=== PATIENT | female | born 1960 | race Caucasian/White ===

== ENCOUNTER 2023-06-24 10:15 | Outpatient (OUT) | payer OTHER, SELFPAY ==
[2023-06-24 10:48] LABS: Basophils Absolute Auto 0.1 10^3/uL (0.0-0.1); Basophils Percent Auto 1.4 % (0.2-2.0); Eosinophils Absolute Auto 0.4 10^3/uL (0.0-0.7); Eosinophils Percent Auto 4.7 % (0.9-7.0); Immature Granulocytes Abs Auto 0.02 10^3/uL (0.00-0.03); Immature Granulocytes Pct Auto 0.2 % (0.0-0.5); Lymphocytes Absolute Auto 3.4 10^3/uL (1.2-3.8); Lymphocytes Percent Auto 36.5 % (20.5-60.0); Mean Corpuscular HGB Conc 31.7 g/dL (29.9-35.2); Mean Corpuscular Hemoglobin 30.6 pg (26.7-34.0); Mean Corpuscular Volume 96.5 fL (81.0-99.0); Monocytes Absolute Auto 0.8 10^3/uL (0.3-0.8); Monocytes Percent Auto 8.7 % (1.7-12.0); Neutrophils Absolute Auto 4.5 10^3/uL (1.4-6.5); Neutrophils Percent Auto 48.5 % (43.0-75.0); Platelet Count 333 10^3/uL (150-450); Red Blood Count 4.25 10^6/uL (4.20-5.40); Red Cell Distribution Width 13.5 % (11.0-15.0); White Blood Count 9.2 10^3/uL (4.0-11.0)
[2023-06-24 11:00] LABS: Alanine Aminotransferase 37 U/L (14-59); Albumin Globulin Ratio 0.8; Albumin Level 3.3 g/dL (3.4-5.0); Alkaline Phosphatase 98 U/L (46-116); Anion Gap 8.5; Aspartate Amino Transferase 15 U/L (15-37); BUN Creatinine Ratio 24.7; Bilirubin Total 0.3 mg/dL (0.2-1.0); Calcium 8.2 mg/dL (8.5-10.1); Carbon Dioxide 31.8 mmol/L (21.0-32.0); Chloride 102 mmol/L (98-107); Estimated GFR (African America >60 (>=60); Estimated GFR (Non-African Ame >60 (>=60); Globulin 3.9 g/dL; Glucose 128 mg/dL (74-106); Potassium 4.3 mmol/L (3.5-5.1); Sodium 138 mmol/L (136-145); Total Protein 7.2 g/dL (6.4-8.2)
== END 2023-06-24 10:16 | disposition home or self-care (01) ==
LOC: LAB 10:19
PROVIDERS: PCP Internal Medicine; Visit Provider Internal Medicine
DX: Z00.00 Encounter for general adult medical examination without abnormal findings (principal)
CPT/HCPCS: 36415; 80053; 80061; 82043; 83036; 84443; 85025

== ENCOUNTER 2025-07-23 12:09 | Outpatient (OUT) | payer OTHER, SELFPAY ==
--- OUTSIDE RECORDS SUMMARY | 2020-10-23 11:45 | XMS_ITS | Continuity of Care Document ---
Author Organization [facility] Address [address] [place] [address] Phone Care Team Providers Care Bakery Worker Name Role Phone Oleg Ybarra Unavailable Unavailable Procedures Procedure Date Pfizer COVID Vaccine Admin Dose 1 COVID-19 Pfizer FLU VAC NO PRSV 4 ILENE 3 YRS+ OFFICE/OUTPATIENT VISIT, EST IMMUNIZATION ADMIN FLU VAC NO PRSV 4 ILENE 3 YRS+ FLU VACCINE, 3 YRS & >, IM OFFICE/OUTPATIENT VISIT, EST FLU VACCINE, 3 YRS & >, IM Advance Directives Directive Yes / No Effective Date File Name No Information Encounters Encounter Description Practice Location Reason(s) For Visit Diagnoses Date Provider Providers Copied on Encounter [facility], [address], [place], [id number], tel:[phone] COVID ECHD No Information 1 Sarahy Rosas. [address], [place], [id number] , [place]. tel:[phone] OFFICE/OUTPAT IENT VISIT, [facility], [address] [place] [address], [id number], [place] tel:[phone] [facility] Lizmarysuad No Information - 4 Sarahy Rosas. [address], [place], [id number] , [place]. tel:[phone] OFFICE/OUTPAT IENT VISIT, EST [facility], [address], [place], [id number], [place] tel:[phone] [facility] [place] Influenza Vaccine 3 Visclni Rosas. [address], [place], [id number] , [place]. tel:[phone] [facility], [address], [place], [id number], [place] tel:[phone] [facility] No Information 1 Visci DO Dejesus. [address], [place], [id number] , [place]. tel:[phone] Family History Family Member Type Diagnosis Age At Onset No Information Immunizations Vaccine Date Status Comments Pfizer COVID administered Source: New Imm unization Record Flu (split) (3 yrs or older) administered Note: vis given ; Source: New Immunization Record Flu (split) (3 yrs or older) administered Note: vis given ; Source: New Immunization Record Flu (split) (3 yrs or older) administered Note: vis given ; Source: New Immunization Record Flu (split) (3 yrs or older) administered Note: vis given ; Source: New Immunization Record Flu (split) (3 yrs or older) administered Note: vis given ; Source: New Immunization Record Flu (split) (3 yrs or older) administered Note: vis given ; Source: New Immunization Record Flu (split) (3 yrs or older) administered Note: vis given ; Source: New Immunization Record Flu (split) (3 yrs or older) administered Note: vis given ; Source: New Immunization Record Flu (split) (3 yrs or older) administered Note: vis given ; Source: New Immunization Record Flu (split) (3 yrs or older) administered Note: vis given ; Source: New Immunization Record Flu (split) (3 yrs or older) administered Note: vis given ; Source: New Immunization Record Flu (split) (3 yrs or older) administered Note: vis given ; Source: New Immunization Record Flu (split) (3 yrs or older) administered Note: vis given ; Source: New Immunization Record Flu (split) (3 yrs or older) administered Note: VIS GIVEN. ; Source: New Immunization Record Payers Payer name Insurance type Covered alliance party ID Authoriza tion(s) [employer] [id number] [employer] [id number] Social History Type Description Quantity Date Captured Comments Alcohol Use Details Unknown Caffeine Use Details Unknown Tobacco Use Status No Information Smoking Status No Information Sex Female Sexual Orientation Straight or heterosexual Gender Identity Female Chief Complaint And Reason For Visit No Information Reason For Referral Reason For Referral No Information Plan Of Treatment Date Type Action Status Goal Influenza Vaccine. Due on due Goal Colonoscopy. Due on 021 due Goal FOBT. Due on due Goal Zoster vaccine (1st). Due on due Goal Mammogram. Due on due Goal Depression screening. Due on due Goal Tdap. Due on due Goal Influenza Vaccine. Due on due History Of Present Illness Encounter Date Complaint History Of Prese nt Illness No Information Functional Status Date Functional Assessmen t No Information Instructions Date Instruction Additional Infor mation No Information Assessments Type Assessment Date No Information Patient Care Teams Name Effective Dates (start - stop) Status Members No Information
--- OUTSIDE RECORDS SUMMARY | 2025-07-23 06:49 | XMS_ITS | Continuity of Care Document ---
Author Organization [facility] Address [address] [place] [address] Phone Care Team Providers Care Lathe Setup Operator Name Role Phone Evelio Dougherty DO Primary Care Provider Evelio Dougherty DO Attending Provider [phone] Care Teams Patient Care Team Team Status: Active Member Role/Relationship Status Dates Evelio Dougherty DO Primary Care Provider Active Patient Care Team Team Status: Inactive Member Role/Relationship Status Dates Evelio Dougherty DO Primary Care Provider Active Start: July 23, 2025 End: July 23enjaevan Dougherty DOAttending ProviderActiveStart: July 23, 2025 End: July 23, 2025 Chief Complaint and Reason for Visit Chief Complaint Admit Date possible broken ribs July 23, 2025 11:10am Reason for Visit Admit Date Chest pain July 23, 2025 11:10am Contusion, chest wall July 23 11:10am Hypothyroid July 23, 2025 11:10am Obesity July 23, 2025 11:10am Type 1 diabetes mellitus with hyperglyce rashel July 23, 2025 11:10am Wellness examination July 23, 2025 11:10am Allergies, Adverse Reactions, Alerts Allergen Type Severity Reaction Last Updated Verified Status latex Allergy Unknown Unknown Reaction July 23, 2025 11:19am Yes Active elastics Allergy Mild Unknown Reaction June 30, 2024 10: 36am No Active Social History Smoking Status Status Start Date End Date Date of Observa tion Never smoked tobacco (finding) May 06, 2017 12:27pm Observation Status Observation Response Date of Response Legal Sex [facility] (finding) [facility] 1960 Problems Active Problems Problem Diagnosis/Recorded Date Onset Date Stat us Screening for colon cancer June 28, 2024 8:16am U nknown Active Screening mammogram for breast cancer June 28 8:16am Unknown Active Type 1 diabetes mellitus wit h hyperglycemia June 28, 2024 8:15am Unknown Active Wellness examination June 28, 2024 8:09am Unknown Active Hypothyroid June 28, 2024 8:16am Unknown Ac tive Contusion, chest wall July 23, 2025 11:41am Unkn own Active Chest pain July 23, 2025 11:41am Unknown Active Obesity June 30, 2024 11:02am Unknown A ctive Medications Medication Status Dose Units Route Directions Qty Days Refills S tart Date Stop Date End Date Reason(s) Instructions Adherence Levothyroxine (Synthroid) 175 mcg tablet Discontinued 175 MCG PO Every morning 90 90 August 03, 2024 12:35pm July 23, 2025 6:52amMontelukast 10 mg ebjcuhFxqefolvilwf99JDCCBdzbg at xtgfotr43785Qfuyy 2024 11:00pmJuly 23, 2025 11:32amLevothyroxine (Synthroid) 175 mcg vchcbkOfdnmy439MCBBQWlthd kbmhzbh72444Gfokffgf2024 6:52amComplies with drug therapyAzithromycin 250 mg swjudvMmxkjbczjhys290AHPE .YUGRTAM225Yyjss 2024 11:00pmAutuba city regional health care corporationt 2024 11:27am2 tabs on first day followed by 1 tab on days 2-5Levothyroxine (Synthroid) 175 mcg tablet Ijnilbvsobxb6WFZAXKpjhn 2023 12:00amDece2023 12:36pmFreeTextSi tablet every morning on an empty stomach Orally Once a day; Note: Source Status: Refill; Refills: 3; Qty: 90 Tablet; Provider: Farhat Conroy Lispro (Humalog U-100 Insulin) 100 unit/mL solution Uhktlmeygxny84KPAVCVRRVGEDOAGehzicsz 5th, 2024 12:00amNove2024 11:24amFexofenadine 180 mg jtrfrpHtyhte386BDIWLczsrSjtfjdur 5th, 2024 12:00am Complies with drug therapyAspirin 81 mg tablet,delayed release (DR/EC)Obbnee96VD PODailyNovember 2023 12:00amComplies with drug therapyNirmatrelvir- Ritonavir (Paxlovid) 300 mg (150 mg x 2)-100 mg tablets,dose vtfgZlckuefeophi5YB .TMXRGQV548Nczqkx 2024 11:00pmNov2024 11:19amtake TWO 150 mg tablets of nirmatrelvir with ONE 100 mg tablet of ritonavir twice daily for 5 days POInsulin Aspart (B3) Pump Cart (Fiasp Pumpcart) 100 unit/mL (1.6 mL) sqyimqobeUpwfqe6qbvnamg scale doseSUBCUTUse as DirectedJuly 23, 2025 12:00amComplies with drug therapy Immunizations Immunization Event Date Not Given Reason Dose Number Human Resources Compliance Manager Lot Number Reason(s) Given Vaccine Information Statement (VIS) Detail Administration Location COVID-19 mRNA, Comirnaty ([employer] October 23, 2020 COVID-19 mRNA, Comirnaty ([employer]August 30OVID-19 mRNA, Comirnaty ([employer]April 05OVID- Comirnaty ([employer] Tri-Sucrose +April 05OVID-19 ([employer]) 12Y and olderOctober 2022Influenza, seasonal, injectable, [id number] [facility] Quadrivalent InfluenzaOctsaint [facility] 2022 Vital Signs Vital Reading Result Reference Range Collection Date/Time Height 63 [in_i] July 23, 2025 11:36ctHbhhkr37.98 kgJuly 23, 2025 11:23amHeart Rate80 /cve52-969LmriruvpJuly 23, 2025 11:23amRespiratory rate12 /cfq27-33IniulpnqJuly 23, 2025 11:23amBP Ntqcveaw611 mm[Hg]100-140July 23, 2025 11:23amBP Diastolic 80 mm[Hg]60-100July 23, 2025 11:23amBMI (Body Mass Index)35.1 kg/m2 July 23, 2025 11:23am Advance Directives Advance Directive Response Recorded Date/ Time Advance Directives No April 1:39pm Insurance Providers Guarantor Siobhan Kunz Address [address] [phone] Info.Home Phone: Payer Group Member ID Coverage Type Subscriber Relationship to Subscriber Effective Date Expiration Date MMO Id: [id number] B Adams Id: [id number] [address] [place] [phone] Home Phone: Email: [email or web address] [id number] B Adams Id: [id number] [address] [place] [phone] Home Phone: Email: [email or web address] Encounters Encounter Location(s) Arrival/Admit Date Discharge/Departure Date Discharge/Departure Disposition Provider(s) Departed Physician/ Provider [facility] July 23, 2025 11:10am July 23, 2025 11:48am Discharged to home care or self care (routine discharge) Evelio Dougherty , DO Recent Diagnosis Onset Date Admit Date Chest pain Unknown July 23 11:10am Contusion, chest wall Unknown June 272024 11:10am Hypothyroid Unknown July 23 11:10am Obesity Unknown July 23 11:10am Type 1 diabetes mellitus with hyperglycemia Unkn own July 23, 2025 11:10am Wellness examination Unknown July 232024 11:10am Assessments Diagnosis Onset Date Resolution Status Admit Date Chest pain acuteNovember 2024 11:10amContusion, chest wallacuteNovember 2024 11:10amHypothyroidacuteNovember 2024 11:10amObesityacuteNovember 2024 11:10amType 1 diabetes mellitus with hyperglycemiaacuteNov2024 11:10amWellness examinationacuteNov2024 11:10am Plan of Treatment Author [facility] HospitalAuthoredNovember 2024 11:47amI have instructed this patient on the recommended lifestyle changes, which includes a low fat, high fiber diet along with a regular exercise routine. I have also reviewed the recommended age-appropriate preventive testing for this patient. I have also reviewed the recommended vaccines for their age and risk factors. I have instructed this patient to follow a comprehensive diabetic treatment plan. I have also instructed them to check their feet daily for calluses and nonhealing ulcers. I have instructed them to have a yearly dilated eye examination. I have reviewed their treatment goals: SBP less than 130, LDL less than 100, FBS less than 140, A1C less than 7%. I have instructed them to maintain a home BS log and bring the results to each of their office visits for review. I have explained the importance of routine monitoring of their A1C, Microalbumin and Lipids. I have explained the benefits of well controlled diabetes in preventing micro and macrovascular complications. Clinically euthyroid, monitor TSH yearly I have instructed this patient on a low-fat, high-fiber diet.?? I have also instructed them to reduce calories, portions sizes, sweet drinks and snacks.?? I have also recommended they exercise for 30 minutes, 3-5 times weekly. They are aware of the comorbid conditions associated with excessive weight: Diabetes, HTN, Hyperlipidemia, CAD and arthritis. Side stepped a cat and fell, striking left chest wall against a porch table. She has pain w/ deep inspiration and feels pressure throughout her chest wall. Instructed to splint the left chest wall w/ cough or sneezing. Tylenol for pain XR to r/o fx, pneumothorax and hemothorax Future Tests Future scheduled test information is unavailable Pending Tests Test Name Ordered Date Scheduled Date Comprehensive Metabolic Panel July 23 11:39am XR ribs LT min 3V w CXR1V*July 23, 2025 11:39am Future Visits Future appointment information is unavailable Future Procedures Procedure Name Ordered Date Scheduled Date Complete Blood Count Auto Diff July 23 11:39am Lipid PanelNov2024 11:39amMicroAlb Creat Ratio,UNovember 2024 11:39amThyroid Stimulating HormoneNov2024 11:39am Future Medications Future medication information is unavailable Patient Instructions Patient instructions are unavailable
--- OUTSIDE RECORDS SUMMARY | 2025-07-23 12:13 | XMS_ITS | Clinical Summary ---
Author Organization [facility] Address [address] [place] [address] Care Team Providers Care Pharmacy Service Associate Name Role Phone Unavailable Primary Care Provider Unavailabl e Allergies Active AllergyReactionsCriticalityNoted DateCommentsSeasonal Allergies Tzwttdmnqvs27/05/2009 Medications MedicationSigDispense QuantityRefillsLast FilledStart DateEnd DateStatus aspirin(ECOTRIN LOW STRENGTH 81 MG TAB) Take one (1) tablet daily. 0 ctive MULTIVITAMIN TAB Take one(1) tablet daily.ctive CETIRIZINE 10 MG TAB Take one(1) tablet daily.ctive SYNTHROID 137 mcg ORAL tablet Take 1 tablet by mouth once daily. 90 tablet ctive glucagon, human recombinant, (GLUCAGON EMERGENCY) 1 mg INJECTION injection Inject 1 mg intramuscularly as needed. for insulin shock. 2 Each ctive insulin aspart (NOVOLOG) 100 unit/mL Soln as directed for pump, total up to 65 daily 5 Vial ctive Immunizations ImmunizationAdministration DatesNext Dueinfluenza vaccine, unspecified dmlxmkvmsaf32/05/2009 Social History Tobacco UseTypesPacks/DayYears UsedDateSmoking Tobacco: NeverAlcohol UseStandard Drinks/WeekCommentsNot Asked0 (1 standard drink = 0.6 oz pure alcohol) CommentsNoSex and Gender InformationValueDate RecordedSex Assigned at BirthNot on fileLegal MztGtrncy52/02/2012 9:48 AM ESTGender IdentityNot on fileSexual OrientationNot on file Last Filed Vital Signs Vital SignReadingTime TakenCommentsBlood Qydtamzi226/70009/25/2010 3:59 PM EST Wglke5590/31/2011 3:59 PM ESTTemperature--Respiratory Wfjf667809/25/2010 3:59 PM ESTOxygen Saturation--Inhaled Oxygen Concentration--Ulavag78.3 kg (177 lb) 09/25/2010 3:59 PM BLXJzpaza463.4 cm (5' 2.75 )08/13/2008 10:10 AM ESTBody Mass Index31.6110/14/2007 10:10 AM EST Plan of Treatment Health MaintenanceDue DateLast DoneCommentsAnxiety Eontyzgat00/22/1981Depression Nucdkmxga17/22/1981HIV Rseebajpu90/22/1981Hepatitis C Hieuzabvz39/22/1981 DTaP,Tdap,Td Vaccine (1 - Tdap)1981Cervical Cancer Bcgvgxdwg27/22/1984 Mammogram Bpnsqqjwn57/22/2003CT Qjlfgifmvkqd81/22/2008Cologuard (FIT-DNA) 09/16/20077737Hgapxudnwss94/22/2008Colorectal Cancer Jwcqjemvr86/22/2008Fecal Occult Blood2007Lipid Ervfavuni24/22/5990Gefjpqwwyooly59/22/2008Pneumococcal Vaccine: 50+ (1 of 1 - PCV)2012Shingrix Vaccine (1 of 2)2012Diabetes Oytjqftjd76, 08/13/2008Covid-19 Vaccine (1 - 2024- season) 2025Influenza Vaccine (#1)/12/2008RSV Vaccine (1 - 1-dose 75+ series)2037 Procedures Procedure NamePriorityDate/TimeAssociated DiagnosisCommentsHEMOGLOBIN R8JNxsbxci 09/13/2010 1:37 PM EST DM w/o complication type I DM w/o complication type II, uncontrolled from Last 3 Months or Most Recently Relevant to Health Maintenance Results * (ABNORMAL) HGB A1C (09/13/2010 1:37 PM EST)ComponentValueRef RangeTest Method Analysis TimePerformed AtPathologist SignatureHemoglobin A1C8.4(H)4.0 - 6.0 % [facility] MAIN LABORATORYComment: [place] [employer] guidelines indicate that patients with HgbA1c in the range 5.7-6.4% are at increased risk for development of diabetes, and intervention by lifestyle modification may be beneficial. HgbA1c greater or equal to 6.5% is considered diagnostic of diabetes. Estimated Average Fowuwgg041wc/dLMERCY [facility]ALTH ST. [facility] MAIN LABORATORYComment: eAG: (Estimated average glucose) is a calculated value from HgbA1c and is sales promotion representative of the average blood glucose level in the last 2-3 month period. Specimen (Source)Anatomical Location / LateralityCollection Method / Volume Collection TimeReceived TimeBlood specimen (specimen)BLOOD SPECIMEN / Unknown 09/13/2010 1:37 PM EST09/13/2010 1:45 PM EST Narrative Authorizing ProviderResult TypeResult StatusDinsuad Holt MDLABORATORYFinal Result Performing OrganizationAddressCity/State/ZIP CodePhone Number [facility] [address] [place] [address] from Last 3 Months or Most Recently Relevant to Health Maintenance Insurance
--- OUTSIDE RECORDS SUMMARY | 2025-07-23 12:13 | XMS_ITS | CCD ---
Author Organization [facility] Care Team Providers Care Cook Apprentice Pastry Name Role Phone Evelio Dougherty Primary Care Unavailable Barby Vasquez Attending Unavailable FARHAT, DR HOSKINS Attending Unavailable FARHAT, DR HOSKINS Consulting Unavailable FARHAT, DR HOSKINS Primary Care Unavailable FARHAT, DR HOSKINS Admitting Unavailable BRANDON, DR СЕРГЕЙ Connell Consulting Evelio Jara Unavailable EVELIO DOUGHERTY Primary Care Physician Sandra MENG Admitting Unavailable Sandra MENG Attending Unavailable Sandra MENG Admitting Unavailable Sandra MENG Consulting Unavailable Sandra MENG Attending Unavailable Sandra MENG Referring Unavailable Sandra MENG Consulting Unavailable Sandra MENG Consulting Unavailable Sandra MENG Consulting Unavailable Sandra MENG Admitting Unavailable Sandra MENG Attending Unavailable Evelio Dougherty MD Primary Care Provider Evelio Dougherty DO Primary Care Provider Evelio Dougherty DO Primary Care Provider Evelio Dougherty DO Attending Provider [phone] MIRTHA CERVANTES Attending Unavailable MIRTHA CERVANTES Attending Unavailable IFRAH RODRIGUEZ Attending Unavailable MIRTHA CERVANTES Attending Unavailable Evelio Dougherty DO Primary Care Provider Allergies Allergy ClassificationReported Allergen(s)Allergy TypeDate of OnsetReaction(s) Facility (3 sources)elastic, latexPropensity to adverse reactionssensitivityNorth [place] Other (4 sources)Dust; Translations: [Dust]Drug allergyUnknown (qualifier value) [facility] (4 sources)Mold Extract; Translations: [Mold]Drug AllergyUnknown (qualifier value)[facility] (4 sources)Pollen; Translations: [Pollen]Drug allergyUnknown (qualifier value) [facility] (16 sources)LatexAllergy to -67-9788Kgogmfb ReactionOhiohealth (3 sources)elasticsAllergy to yhxubkgsq02-65-0972Takwpdk ReactionOhiohealth (13 sources)House dust miteAllergy to wiftjaydq73-68-5352UQKZ Healthcare (13 sources)Mold ExtractDrug Vdulqrp22-70-5668YWWU Healthcare (13 sources)PollenAllergy to ryrlmkgil27-60-9314YPRT Healthcare Medications Current Medications MedicationDrug Class(es)DatesSig (Normalized)Sig (Original)Patsy Allergy (2 sources)Start: 23-26-8219Inpxvme Allergy 180 mg, Oral, Refills(s) 0 Start Date: 01/22/19 Status: Orderedaspirin 81 mg delayed release oral tablet (20 sources)Platelet Aggregation Inhibitor, Nonsteroidal Anti-inflammatory Drug Start: 04-18-5723xaif 1 tablet by mouth once dailyStart: 65-35-5242Knfldwl Adult Low Dose 81 MG Aspirin( 81MG Oral 1 daily ) Active -Hx Entry Oral daily for 0 ActiveStart: 45-22-4010lrob 1 mg by mouth once dailyAdult Aspirin 81 mg oral tablet, chewable mg tab(s), Chewed, Daily, Refills(s) 0 Start Date: 01/22/19 Status: OrderedASPIRIN 81 MG chewable tablet 1 (one) time each day at the same time. ActiveContinuous Blood Gluc Sensor (Dexcom G6 Sensor) misc (2 sources)Start: 62-69-8247Kmedecwyij Blood Gluc Sensor (Dexcom G6 Sensor) misc Indications: Type 1 diabetes mellitus without complication (CMS/HCC) 1 each See administration instructions 9 each 1 12/09/2023 ActiveContinuous Blood Gluc Transmit (Dexcom G6 transmitter) misc (4 sources)Start: 33-39-9112Vzyozpgjeg Blood Gluc Transmit (Dexcom G6 transmitter) misc Indications: Type 1 diabetes mellitus without complication (CMS/HCC) Use as instructed every 90 days 1 each 3 12/09/2023 ActiveContinuous Glucose Sensor (Dexcom G6 Sensor) misc (10 sources)Start: 93-76-8540Eizxmkbyok Glucose Sensor (Dexcom G6 Sensor) misc Indications: Type 1 diabetes mellitus without complication (HCC) USE 1 SENSOR (SEE ADMINISTRATION INSTRUCTIONS) 9 each 1 05/03/2025 ActiveStart: 05-18-2024 Continuous Glucose Sensor (Dexcom G6 Sensor) misc Indications: Type 1 diabetes mellitus without complication (HCC) USE 1 SENSOR (SEE ADMINISTRATION INSTRUCTIONS) 9 each 05/18/2024 ActiveStart: 39-46-4714Ansaxyleuz Glucose Sensor (Dexcom G6 Sensor) misc Indications: Type 1 diabetes mellitus without complication USE 1 SENSOR (SEE ADMINISTRATION INSTRUCTIONS) 9 each 05/18/2024 ActiveStart: 99-82-5522Yuxydegttq Glucose Sensor (Dexcom G6 Sensor) misc Indications: Type 1 diabetes mellitus without complication (CMS/HCC) USE 1 SENSOR (SEE ADMINISTRATION INSTRUCTIONS) 9 each 3 05/18/2024 ActiveContinuous Glucose Transmitter (Dexcom G6 transmitter) misc (8 sources)Start: 18-62-5971Lbhmnyvaqm Glucose Transmitter (Dexcom G6 transmitter) misc Indications: Type 1 diabetes mellitus without complication (HCC) USE INSTRUCTED EVERY 90 DAYS 1 each 3 11/12/2024 ActiveStart: 25-67-3270Whkbaiyeyt Glucose Transmitter (Dexcom G6 transmitter) misc Indications: Type 1 diabetes mellitus without complication USE INSTRUCTED EVERY 90 DAYS 1 each 3 11/12/2024 Activefexofenadine hydrochloride 180 mg oral tablet (8 sources)Histamine-1 Receptor AntagonistStart: 09-93-2239aqoc 1 tablet by mouth once daily End: 12-24-7685fctj 1 tablet by mouth once dailyfexofenadine (Patsy) 180 MG tablet 1 (one) time each day at the same time. 1 tablet Swallow wholewith water; do not take with fruit juices. Orally Once a day 05/08/2024 Discontinued (Therapy completed)glucagon 3 mg nasal powder (13 sources)Antihypoglycemic AgentStart: 05-86-0750anxh 3 mg nasal route once glucagon (Baqsimi One Pack) 3 MG/DOSE nasal powder Administer 3 mg into affected nostril(s) 1 (one)time if needed for low blood sugar 09/22/2021 ActiveStart: 06-20-9958ladjxctp (Baqsimi One Pack) 3 MG/DOSE nasal powder as directed for hypoglycemia Nasally for 30 days09/22/2021 Activeinsulin aspart, human 100 unt/ml injectable solution (14 sources)Insulin AnalogStart: 11-11-7089Dieqy 100 UNIT/ML solution Indications: Type 1 diabetes mellitus without complication (HCC) INJECT ONE DOSE DIRECTED SEE ADMINISTRATIONINSTRUCTIONS PER PUMP MAXIMUM DAILY 150UNITS 140 mL 1 05/03/2025 ActiveStart: 93-73-2001Ywkytwq Aspart, w/Niacinamide, (Fiasp) 100 UNIT/ML solution Indications: Type 1 diabetes mellitus without complication (HCC) INJECT ONE DOSE DIRECTEDSEE ADMINISTRATION INSTURCTIONS PER PUMP MAXIMUM DAILY 150 UNITS 150 mL 1 11/12/2024 ActiveStart: 08-24-2024 End: 06-34-9645rxopoqf aspart (NovoLOG) 100 UNIT/ML injection Indications: Type 1 diabetes mellitus without complication (CMS/HCC) Per pump (max daily 150 units) 140 mL 3 08/24/2024 10/01/2024 Discontinued (Therapycompleted)Start: 79-89-4417Jqhdoih Aspart, w/Niacinamide, (Fiasp) 100 UNIT/ML solution Indications: Type 1 diabetes mellitus without complication (CMS/HCC) Inject 1 Dose as directed See administration instructions Per pump (max daily 150 units) 150 mL 3 12/05/2023 ActiveInsulin Disposable Pump (Omnipod 5 OnmQ2X6 Pods Gen 5) misc (8 sources)Start: 11-27-2024 End: 48-86-9000Mjecoms Disposable Pump (Omnipod 5 CazD8V1 Pods Gen 5) misc Indications: Type 1 diabetes mellitus without complication (HCC) Inject 1 Device under the skin every other day Pump settings- Basal: 12A 2.0, 10A 1.6, 5P 2.6, ICR: 12A 4, ISF: 35 45 each 3 11/27/2024 11/27/2025 ActiveStart: 11-27-2024 End: 94-86-8681Rhjnaux Disposable Pump (Omnipod 5 MsgC2W6 Pods Gen 5) misc Indications: Type 1 diabetes mellitus without complication Inject 1 Device under the skin every other day Pump settings- Basal: 12A 2.0, 10A 1.6, 5P 2.6, ICR: 12A 4, ISF: 35 45 each 3 11/27/2024 11/27/2025 ActiveInsulin Disposable Pump (Omnipod 5 G6 Pods, Gen 5,) misc (6 sources)Start: 16-43-2878Whgjjlf Disposable Pump (Omnipod 5 G6 Pods, Gen 5,) [facility] Indications: Type 1 diabetes mellitus without complication (CMS/HCC) Inject 1 each under the skin every other day Inject 1 each under the skinevery other day. Pump settings- Basal: 12A 2.0, 10A 1.6, 5P 2.6, ICR: 12A 4, ISF: 35 45 each 3 05/10/2024 ActiveStart: 10-10-2023 End: 89-70-9876Iumbtae Disposable Pump (Omnipod 5 G6 Pods, Gen 5,) [facility] [place] Indications: Type 1 diabetes mellitus without complication (CMS/HCC) Inject 1 each under the skin every other day Inject 1 each under the skinevery other day. Pump settings- Basal: 12A 1.8, 10A 1.6, 5P 2.2, ICR: 12A 4, ISF: 35 45 each 3 10/10/2023 05/10/2024 Discontinued (Dose adjustment)3 ml insulin glargine 100 unt/ml pen injector (13 sources)Insulin AnalogStart: 75-70-5041ucgkerz glargine (Lantus SoloStar) 100 UNIT/ML pen Indications: Type 1 diabetes mellitus without complication (HCC) Inject 50 Units under the skin in the morning. 15 mL 3 06/11/2023 Activeinsulin lispro 100 unt/ml injectable solution (6 sources)Insulin AnalogStart: 60-03-9249Mpllh: 95-79-9607Owdlfgv SubCutaneous, Refills(s) 0 Start Date: 01/22/19 Status: OrderedHumaLOG 100 UNIT/ML INJECT 90 UNITS DAILY VIA INSULIN PUMP ActiveHumaLOG 100 UNIT/ML INJECT 90 UNITS DAILY VIA INSULIN PUMP ActiveInsulin Lispro (Humalog U-100 Insulin) 100 unit/mL solution (2 sources)Start: 81-21-2961Yetblcw Lispro (Humalog U-100 Insulin) 100 unit/mL solution Active 90 UNIT CNTSUBQINF June 1:00amStart: 06-30-2024 Insulin Lispro (Humalog U-100 Insulin) 100 unit/mL solution Active 90 UNIT CNTSUBQINF June 12:00amlevocetirizine dihydrochloride 5 mg oral tablet (13 sources)Histamine-1 Receptor Antagonisttake 1 tablet by mouth in the evening levocetirizine (Xyzal) 5 MG tablet Take 5 mg by mouth in the evening Active levothyroxine sodium 0.175 mg oral tablet (20 sources)l-ThyroxineStart: 06-30-2024 End: 60-56-0917crgc 1 tablet by mouth once daily in the morningStart: 01-22-2019 take 1 tablet by mouth once dailylevothyroxine 150 mcg (0.15 mg) Tab microgram tab(s), Oral, Daily, Refills(s) 0 Start Date: 01/22/19Status: OrderedMagnesium (6 sources) End: 01-82-6395UMHCTRUWC PO 12/29/2024 DiscontinuedMAGNESIUM PO Active montelukast 10 mg oral tablet (14 sources)Leukotriene Receptor AntagonistStart: 30-42-3599xhne 1 tablet by mouth once daily at bedtimeMultiple Vitamin (Multi Vitamin Daily) tablet (13 sources)Multiple Vitamin (Multi Vitamin Daily) tablet 1 (one) time each day at the same time. ActiveMultiple Vitamins-Minerals (Airborne) chewable tablet (13 sources)Multiple Vitamins-Minerals (Airborne) chewable tablet as directed Orally ActiveNirmatrelvir-Ritonavir (1 source)Start: 00-08-3239Cblxcsujinjm-Ritonavir (Paxlovid) 300 mg (150 mg x 2)-100 mg tablets,dose pack Active 0 PO .QCVENRK50 March 29, 2025 12:00am take TWO 150 mg tablets of nirmatrelvir with ONE 100 mg tablet of ritonavir twice daily for 5 days PO Complies with drug therapyterbinafine 250 mg oral tablet (3 sources)Allylamine AntifungalStart: 05-17-2025 End: 19-51-1646iqma 1 tablet by mouth once dailyterbinafine (LamISIL) 250 MG tablet Indications: Onychomycosis Take 1 tablet (250 mg) by mouth Daily 90 tablet 05/17/2025 08/15/2025 Active Completed/Discontinued Medications MedicationDrug Class(es)DatesSig (Normalized)Sig (Original)azithromycin 250 mg oral tablet (5 sources)Macrolide AntimicrobialStart: 11-02-2024 End: 10-83-4754Mxnjccoeshgw 250 mg tablet Discontinued 250 MG PO .COMPLEX 6 5 November 02, 2024 12:00am March 12:27pm 2 tabs on first day followed by 1 tab on days 2-5Start: 70-11-0628ypoo 1 tablet by mouth once dailyAzithromycin 250 MG azithromycin 250mg, 2 (two) tablet today followed by 1 daily # 6, 06/22/2022, No Refill. Active Oral today followed by 1 daily for 5 May, Not-Taking/PRNFezolinetant (Veozah) 45 MG tablet (2 sources)Start: 03-26-2024 End: 30-84-6589dsfj 1 tablet by mouth once dailyFezolinetant (Veozah) 45 MG tablet Indications: Vasomotor symptoms due to menopause Take 1 tablet by mouth Daily 30 tablet 11 03/26/2024 05/08/2024 Discontinued (Cost of medication) Insulin Disposable Pump (Omnipod 5 G6 Pod, Gen 5,) misc (2 sources)Start: 09-05-2023 End: 57-83-7298Nckuvzo Disposable Pump (Omnipod 5 G6 Pod, Gen 5,) misc Indications: Type 1 diabetes mellitus without complication ([facility]) 1 Device every other day 45 each 3 09/05/2023 05/08/2024 Discontinued Problems Active Problems Problem ClassificationProblemDateDocumented DateEpisodic/ChronicAbdominal pain (3 sources)Epigastric pain; Translations: [Epigastric pain]EpisodicComplications of surgical procedures or medical care (5 sources)Postoperative hypothyroidism; Translations: [Postprocedural hypothyroidism]ChronicDiabetes mellitus without complication (20 sources)Type 1 diabetes mellitus without complication; Translations: [Type 1 diabetes mellitus without complications]Onset: hronic Disorders of lipid metabolism (3 sources)Pure hypercholesterolemia; Translations: [Familial hypercholesterolemia]ChronicEsophageal disorders (3 sources)Gastroesophageal reflux disease; Translations: [Gastro-esophageal reflux disease without esophagitis]ChronicImmunizations and screening for infectious disease (2 sources)Patient encounter status; Translations: [Encounter for screening for human papillomavirus (HPV)]07-54-4082FgcrqgokYpnbsppzlz disorders (17 sources)Menopausal symptom; Translations: [Menopausal and female climacteric states]Onset: 762915-80-2369HnpyferFkpuaxi (4 sources)Onychomycosis; Translations: [Tinea unguium]74-94-9086WgqjmnupYjyrm diseases of bladder and urethra (2 sources)Male cystocele; Translations: [Other specified disorders of bladder] 65-15-7247KrrjhbaBcsxx inflammatory condition of skin (3 sources)Lichen planus; Translations: [Lichen planus, unspecified]Episodic Other lower respiratory disease (3 sources)Cough; Translations: [Cough]EpisodicOther nutritional; endocrine; and metabolic disorders (16 sources)Severe obesity; Translations: [Morbid (severe) obesity due to excess calories]Onset: 410269-80-0893JztjgxoUnztt nutritional; endocrine; and metabolic disorders (3 sources)Body mass index 30+ - obesity; Translations: [Body mass index (BMI) 35.0-35.9, adult]ChronicOther nutritional; endocrine; and metabolic disorders (1 source)Morbid (severe) obesity due to excess caloriesChronicOther nutritional; endocrine; and metabolic disorders (1 source)Body mass index (BMI) 35.0-35.9, adultChronicOther nutritional; endocrine; and metabolic disorders (3 sources)Obesity; Translations: [Obesity, unspecified]03-59-9779JeyczsgLonsb nutritional; endocrine; and metabolic disorders (1 source)Obesity, unspecified; Translations: [Obesity, unspecified]06-30-2024 ChronicOther nutritional; endocrine; and metabolic disorders (3 sources)History of Graves' disease; Translations: [Personal history of other endocrine, nutritional and metabolic disease]EpisodicOther screening for suspected conditions (not mental disorders or infectious disease) (14 sources)Encounter for screening for malignant neoplasm of colon; Translations: [Encounter for screening mammogram for malignant neoplasm of breast]EpisodicOther upper respiratory disease (3 sources)Vasomotor rhinitis; Translations: [Vasomotor rhinitis]ChronicOther upper respiratory disease (1 source)Vasomotor rhinitisChronicThyroid disorders (4 sources)Hypothyroidism; Translations: [Hypothyroidism, unspecified]06-28-2024 ChronicUnclassified (1 source)R07.81 - Pleurodynia; Translations: [R07.81 - Pleurodynia]Onset: 74-08-3736Ycrtwmkbhvdr (2 sources)Screening xqmnco05-78-2176Gmkrz infection (1 source)Disease caused by 2019-nCoV; Translations: [COVID-19]03-29-2025 EpisodicViral infection (4 sources)COVID-19; Translations: [COVID-19]Onset: 10-31-2021 Past or Other Problems Problem ClassificationProblemDateDocumented DateEpisodic/ChronicDiabetes mellitus with complications (20 sources)Hyperglycemia due to type 1 diabetes mellitus; Translations: [Type 1 diabetes mellitus with hyperglycemia]Onset: 05-10-2024 Resolved: 02-23-2460NcwrfweIekvg gastrointestinal disorders (13 sources)Abdominal bloating; Translations: [Abdominal distension (gaseous)] Onset: 363910-65-2476FxfusoyvBpuutjbbency (1 source)Acute right-sided low back pain without sciatica M54.50 Results Test NameValueInterpretationReference RangeFacilityCOMPREHENSIVE METABOLIC PANEL on 02-37-1621Wwfunqa [Mass/Vol]4.0 g/dLNormal3.6-5.1Quest DiagnosticsComment on above:Performed By: #### [id number] #### [facility] [place] [address] Data Reviewer: Isac Mead MDAlbumin/Globulin [Mass ratio]1.5 {ratio}Normal 1.0-2.5Quest DiagnosticsComment on above:Performed By: #### [id number] #### [facility] [place] [address] Data Reviewer: Isac Mead MDALP [Catalytic activity/Vol]98 U/NNzoxuj22-151 Quest DiagnosticsComment on above:Performed By: #### [id number] #### [facility] [place] [address] Data Reviewer: Isac Mead MDALT [Catalytic activity/Vol]23 U/LNormal6-29 Quest DiagnosticsComment on above:Performed By: #### [id number] #### [facility] of [place] [address] Data Reviewer: Isac Mead MDAST [Catalytic activity/Vol]18 U/LAxkkkk05-30 Quest DiagnosticsComment on above:Performed By: #### [id number] #### [facility] of [address], [address] [place] [address] Data Reviewer: Isac Mead MDBilirubin [Mass/Vol]0.3 mg/dLNormal0.2-1.2 Quest DiagnosticsComment on above:Performed By: #### 75046 #### [facility] of [place] [address] Data Reviewer: Isac Mead MDBUN/CREATININE RATIOSEE NOTE:Normal6-22Quest DiagnosticsComment on above:Result Comment: Not Reported: BUN and Creatinine are within reference range.Performed By: #### [id number] #### [facility] of [address], [address] [place] [address] Data Reviewer: Isac Mead MDCalcium [Mass/Vol]8.7 mg/dLNormal8.6-10.4Quest DiagnosticsComment on above:Performed By: #### [id number] #### [facility] of [address], [address] [place] [address] Data Reviewer: Isac Mead MDChloride [Moles/Vol]102 mmol/MKmvhwk74-616 Quest DiagnosticsComment on above:Performed By: #### [id number] #### [facility] of [place] [address] Data Reviewer: sIac Mead MDCO2 [Moles/Vol]28 mmol/ANjvfdd87-80Mzflw DiagnosticsComment on above:Performed By: #### [id number] #### [facility] [place] [address] Data Reviewer: Isac Mead MDCreatinine [Mass/Vol]0.66 mg/dLNormal0.50-1.05 Quest DiagnosticsComment on above:Performed By: #### [id number] #### [facility] [place] [address] Data Reviewer: Isac Mead MDGFR/1.73 sq M.predicted among non-blacks MDRD (S/P/Bld) [Vol rate/Area]99 mL/min/{1.73_m2}Normal> OR = 60[facility] Comment on above:Performed By: #### [id number] #### [facility] [place] [address] Data Reviewer: Isac Mead MDGlobulin (S) [Mass/Vol]2.6 g/dLNormal1.9-3.7 Quest DiagnosticsComment on above:Performed By: #### 10107 #### [facility] [place] [address] Data Reviewer: Isac Mead MDGlucose [Mass/Vol]165 mg/sAVacx79-11Suxpw DiagnosticsComment on above:Result Comment: Fasting reference interval For someone without known diabetes, a glucose value >125 mg/dL indicates that they may have diabetes and this should be confirmed with a follow-up test.Performed By: #### [id number] #### [facility] [place] [address] Data Reviewer: Isac Mead MDPotassium [Moles/Vol]4.2 mmol/LNormal3.5-5.3 Quest DiagnosticsComment on above:Performed By: #### [id number] #### [facility] [place] [address] Data Reviewer: Isac Mead MDProtein [Mass/Vol]6.6 g/dLNormal6.1-8.1Quest DiagnosticsComment on above:Performed By: #### [id number] #### [facility] [address] [place] [address] [address], [address] [place] [address] Data Reviewer: Isac Mead MDSodium [Moles/Vol]139 mmol/KThoglf425-033Zndmb DiagnosticsComment on above:Performed By: #### [id number] #### [facility] [address] [place] [address] Rd, [address] [place] [id number] Data Reviewer: Isac Mead MDUrea nitrogen [Mass/Vol]20 mg/dLNormal7-25 Quest DiagnosticsComment on above:Performed By: #### [id number] #### [facility] [address], [address] Data Reviewer: Isac Mead MDHbA1c (Bld) [Mass fraction]on 05-17-2025 Interpretation and review of laboratory resultsNoAscension Saint Clare's HospitalLaboratory - Hematology and Cell countson 89-99-1706GwQ5t (Bld) [Mass fraction]7.5 %[facility] HospitalHbA1c (Bld) [Mass fraction]on 12-29-2024 Interpretation and review of laboratory resultsNormSSM Health St. [facility] JanesvilleLaboratory - Hematology and Cell countson 13-75-3618LhY2b (Bld) [Mass fraction]7.7 %[facility] HospitalNo Panel InformationOrdered By: Evelio Dougherty on 99-91-1287DBB (POC)[facility]healthHbA1c (Bld) [Mass fraction] on 23-10-9700Svpfpdhruslkfh and review of laboratory resultsAbnoAscension Saint Clare's HospitalLaboratory - Hematology and Cell countson 10-01-2024 HbA1c (Bld) [Mass fraction]8.2 %[facility] MAMM SCREEN W/CAD IF PERF AND 3D BILon 06-13-2024 Exam Date/Time: 06/10/2024 11:41 EDT Reason for Exam: Z12.31 Report IMPRESSION: BIRADS 2 BENIGN FINDINGS, NORMAL INTERVAL FOLLOW-UP Follow-up: 12 MONTH RECALL Density: Category C - Heterogeneously dense. Vascular calcifications: Absent. EXAM: [place] Mamm Screen w/CAD if perf and 3D Dann DATE: 06/10/2024 11:25 AM CLINICAL HISTORY: Z12.31. COMPARISONS: 04/13/2020 and 02/10/2018. TECHNIQUE: Routine full-field digital mammograms and 3D breast tomosynthesis were obtained of both breasts. FINDINGS: There are no developing densities, suspicious microcalcifications, or areas of architectural distortion identified on the current study. No significant changes are identified from the prior studies, given differences in technique and positioning. Stable asymmetric densities and a few scattered microcalcifications. Dense Breast: Yes. CAD analysis was performed and used in the interpretation. Board Certified Radiologists. Accredited by the ACR and FDA. MAMMOGRAPHY IS VERY IMPORTANT TO YOUR HEALTH. THE CURRENT [place] [employer] GUIDELINES RECOMMENDS ANNUAL MAMMOGRAPHY BEGINNING AT AGE 40. THIS FACILITY UTILIZES A REMINDER SYSTEM TO ENSURE ALL PATIENTS RECEIVE REMINDER NOTIFICATIONS AT THE APPROPRIATE TIME BASED ON THE RECOMMENDATIONS OF THIS EXAM. Report Ordering Provider: , FINAL REPORT Dictated: 06/13/2024 8:21 am Abel Valadez MD Signed (Electronic Signature): 06/13/2024 8:21 am Signed by: Abel Valadez MD Transcribed by: VIKASH Technologist: AP Assessment: BI-RADS Category 2-Benign finding Recommendation: Normal interval follow-upMEMORIAL H[facility] COUNTY – GUYMONRadiology, Radiologist, - 06/13/2024 Exam Date/Time: 06/10/2024 11:41 EDT Reason for Exam: Z12.31 Report IMPRESSION: BIRADS 2 BENIGN FINDINGS, NORMAL INTERVAL FOLLOW-UP Follow-up: 12 MONTH RECALL Density: Category C - Heterogeneously dense. Vascular calcifications: Absent. EXAM: [place] Mamm Screen w/CAD if perf and 3D Dann DATE: 06/10/2024 11:25 AM CLINICAL HISTORY: Z12.31. COMPARISONS: 04/13/2020 and 02/10/2018. TECHNIQUE: Routine full-field digital mammograms and 3D breast tomosynthesis were obtained of both breasts. FINDINGS: There are no developing densities, suspicious microcalcifications, or areas of architectural distortion identified on the current study. No significant changes are identified from the prior studies, given differences in technique and positioning. Stable asymmetric densities and a few scattered microcalcifications. Dense Breast: Yes. CAD analysis was performed and used in the interpretation. Board Certified Radiologists. Accredited by the ACR and FDA. MAMMOGRAPHY IS VERY IMPORTANT TO YOUR HEALTH. THE CURRENT [place] [employer] AND [employer] GUIDELINES RECOMMENDS ANNUAL MAMMOGRAPHY BEGINNING AT AGE 40. THIS FACILITY UTILIZES A REMINDER SYSTEM TO ENSURE ALL PATIENTS RECEIVE REMINDER NOTIFICATIONS AT THE APPROPRIATE TIME BASED ON THE RECOMMENDATIONS OF THIS EXAM. Report Ordering Provider: , FINAL REPORT Dictated: 06/13/2024 8:21 am Abel Valadez MD Signed (Electronic Signature): 06/13/2024 8:21 am Signed by: Abel Valadez MD Transcribed by: VIKASH Technologist: MARGARITA Assessment: BI-RADS Category 2-Benign finding Recommendation: Normal interval follow-up [facility] HealthcareMN [facility] S[facility] W/CAD IF PERF AND 3D BILOrdered By: Radiologist Radiology on 99-70-7807SANZ [employer] Work Phone: [place] Mamm Screen w/CAD if perf and 3D [place] 02-95-8278WK Mamm Screen w/CAD if perf and 3D BilExam Date/Time: 06/10/2024 11:41 EDT Reason for Exam: Z12.31 Report IMPRESSION: BIRADS 2 BENIGN FINDINGS, NORMAL INTERVAL FOLLOW-UP Follow-up: 12 MONTH RECALL Density: Category C - Heterogeneously dense. Vascular calcifications: Absent. EXAM: MA Mamm Screen w/CAD if perf and 3D Dann DATE: 06/10/2024 11:25 AM CLINICAL HISTORY: Z12.31. COMPARISONS: 04/13/2020 and 02/10/2018. TECHNIQUE: Routine full-field digital mammograms and 3D breast tomosynthesis were obtained of both breasts. FINDINGS: There are no developing densities, suspicious microcalcifications, or areas of architectural distortion identified on the current study. No significant changes are identified from the prior studies, given differences in technique and positioning. Stable asymmetric densities and a few scattered microcalcifications. Dense Breast: Yes. CAD analysis was performed and used in the interpretation. Board Certified Radiologists. Accredited by the ACR and FDA. MAMMOGRAPHY IS VERY IMPORTANT TO YOUR HEALTH. THE CURRENT [employer] [employer] GUIDELINES RECOMMENDS ANNUAL MAMMOGRAPHY BEGINNING AT AGE 40. THIS FACILITY UTILIZES A REMINDER SYSTEM TO ENSURE ALL PATIENTS RECEIVE REMINDER NOTIFICATIONS AT THE APPROPRIATE TIME BASED ON THE RECOMMENDATIONS OF THIS EXAM. Report Ordering Provider: , FINAL REPORT Dictated: 06/13/2024 8:21 am Abel Valadez MD Signed (Electronic Signature): 06/13/2024 8:21 am Signed by: Abel Valadez MD Transcribed by: VIKASH Technologist: MARGARITA Assessment: BI-RADS Category 2-Benign finding Recommendation: Normal interval follow-upMount Carmel Health SystemMA MAMM SCREEN W/CAD IF PERF AND 3D BILon 11-62-1110Iigzneuxi Study observation (narrative)[facility] HospitalHbA1c (Bld) [Mass fraction]on 22-64-4498Rqfiugspwlyayq and review of laboratory resultsAbnoAscension Saint Clare's HospitalLaboratory - Hematology and Cell countson 67-33-2965XqC2u (Bld) [Mass fraction]8.1 %[facility] HospitalALAbrazo [facility] 60-59-1354UZE No additional P-5'-P [Catalytic activity/Vol]22 Int._Unit/LNormal6-46[facility] CenterComment on above:Performed By: #### [id number] #### [facility] [address], [place] [address]VRFwr 90-42-5792JBR [Catalytic activity/Vol]14 Int._Unit/L Normal5-43[facility] CenterComment on above:Performed By: #### [id number] #### [facility] [address], [place] [address]Urie Directon 17-71-3546Xmaabxetr.direct [Mass/Vol]0.1 mg/dL Normal0.0-0.4FSelect Medical Cleveland Clinic Rehabilitation Hospital, AvonComment on above:Performed By: #### [id number] #### [facility] [address], [place] [address]Dwyu Totalon 01-68-6464Snyjmzbxt [Mass/Vol]0.4 mg/dLNormal 0.0-1.1FSelect Medical Cleveland Clinic Rehabilitation Hospital, AvonComment on above:Performed By: #### [id number] #### [facility] [address], [place] [address]FYGSFUQDNIyrstuh By: SYSTEM SYSTEM on 41-89-1521Sqngwxisc [Mass/Vol]0.4 mg/dLNormal0.0 - 1.1 mg/dLRemisol ChemBilirubin.direct [Mass/Vol] 0.1 mg/dLNormal0.0 - 0.4 mg/dLRemisol ChemALT No additional P-5'-P [Catalytic activity/Vol]22 [iU]/dNormal6 - 46 Int._Unit/LRemisol ChemAST [Catalytic activity/Vol]14 [iU]/dNormal5 - 43 Int._Unit/LRemisol ChemXR ribs LT min 3V w CXR1V*on 09-03-6946PC ribs LT min 3V w CXR1V*[facility] Main [place] [address] [place] [address] XRay Report Signed Patient: Shad Kunz MR#: [id number] : 1960 Acct:[id number] Age/Sex: 58 / F ADM Date: 09/17/18 Loc: [facility] Room: Type: [facility] Attending Dr: Barby PHIPPSC Ordering Provider: Barby Vasquez Date of Service: 09/17/18 XR/XR ribs LT min 3V w CXR1V*: RIB PAIN LEFT SIDE Copies to: Barby Vasquez PA CHEST AND LEFT RIBS - 4 views COMPARISON: 05/06/2015 CLINICAL DATA: Left mid anterior rib pain just below the breast since patient ran into a door last weekend. The chest film shows chronic interstitial changes. There is no focal consolidation, sizable effusion or pneumothorax. The cardiac silhouette is mildly prominent though this may part relate to a prominent pericardial fat pad on the left. The bony structures are osteopenic. There is a radiopaque structure projecting along the right lateral chest might be the reported insulin pump. AP and oblique views of the ribs were obtained. There are no obvious acute displaced fractures or bony destruction within limits of the osteopenia. XR/XR ribs LT min 3V w CXR1V* IMPRESSION: NO OBVIOUS ACUTE FINDINGS. Impression dictated by: Delma Felix M.D.09/17/2018 6:22 PM Dictation Location: [facility] Transcribed By: SARAY 01/1821 Dictated By: Delma Felix MD 09/17/181817 Signed By: 09/17/181821[facility] Vital Signs Date TimeVital SignValuePerforming MzdioiawwFyibrssv78-57-9904 14:52-0400Body alorjo667 cmAllison Petznick DO Work Phone: 1(701)[facility] [place], [place] [address]Ncssazkbwc24-54-3467 14:52-0400Body mass index (BMI) [Ratio]34.19 kg/u3Qldzuqk Petznick DO Work Phone: 1(061)[facility] [place], [place] [address]Spcwjilxsb56-66-0747 14:52-0400Body temperature 98.01 [degF]Mirtha Petznick DO Work Phone: 1(161)[address] [place], [place] [address]109-22-2025 14:52-0400Body xhvhyh65.54 kgAllison Petznick DO Work Phone: 1(360)[address] [place], [place] [address]47109-22-2025 14:52-0400Diastolic blood cxpmkgey56 mm[Hg]Mirtha Petznick DO Work Phone: 1(080)[facility] [place], [place] [address]Xiaewjpeyo16-15-7691 14:52-0400Heart rate88 /min Mirtha Petznick DO Work Phone: 1(073)[facility] [place], [place] [address]Nzniihbjdl73-84-2828 14:52-7549MrT8% (BldA) [Mass fraction]97 %Mirtha Petznick DO Work Phone: 1(845)[facility] [place], [place] [address]Owcwxuffbw22-59-7093 14:52-0400Systolic blood yswcexjk979 mm[Hg]Mirtha Petznick DO Work Phone: 1(958)[facility]-[address] HospitalTsaepqaagd88-96-6244 08:29-0400Body gmcecm334 cm Ifrah Nataprawira DO Work Phone: [facility] HospitalYririhjadn29-32-7506 08:29-0400Body mass index (BMI) [Ratio]34.01 kg/m2Mona Nataprawira DO Work Phone: [facility] HospitalEogounyfdb58-95-4790 08:29-0400Body yjnuwk40.09 kgMona Nataprawira DO Work Phone: [facility] HospitalElqpmbpbzz85-42-0247 08:29-0400Diastolic blood rrfltuln69 mm[Hg]Ifrah Rodriguez DO Work Phone: [facility] HospitalHzoooqpekv87-53-0643 08:29-0400Systolic blood anriberc670 mm[Hg]Ifrah Rodriguez DO Work Phone: [facility] HospitalGrnqhjyyhr22-31-1495 10:50-0400Body cm Mirtha Petznick DO Work Phone: 1(855)[facility] [place], [place] [address]Klukflgjda47-70-9265 10:50-0400Body mass index (BMI) [Ratio]34.01 kg/p1Jkuolph Petznick DO Work Phone: 1(421)[facility] [place], [place] [address]Jgpmvsrieu69-65-8377 10:50-0400Body temperature 99.1 [degF]Mirtha Petznick DO Work Phone: 1(524)[facility] [place], [place] [address]Owpxbzpgha41-55-8834 10:50-0400Body naatlh67.09 kgAllison Petznick DO Work Phone: 1(925)[facility] [place], [place] [address]Bmhxifepyv17-13-1670 10:50-0400Diastolic blood osnhsqrq50 mm[Hg]Mirtha Petznick DO Work Phone: 1(326)[facility] [place], [place] [address]Qfbivgvgel24-55-4970 10:50-0400Heart rate88 /min Mirtha Petznick DO Work Phone: 1(120)[facility] [place], [place] [address]Lqrlfhgxfw61-57-2642 10:50-5939PsY8% (BldA) [Mass fraction]95 %Mirtha Petznick DO Work Phone: 1(950)[facility] [place], [place] [address]Kliitbetjx67-29-7826 10:50-0400Systolic blood pqffpgxi236 mm[Hg]Mirtha Petznick DO Work Phone: 1(198)[facility] [place], [place] [address]Pyexriynlp84-88-9997 11:26-0400Body equxqt921.02 cmOhiohealth03-10-2025 11:26-0400Body mass index (BMI) [Ratio]34.2 kg/p1TxxqlflthOhiohealth03-10-2025 11:26-0400Body aorjwo61.65 kgOhiohealth03-10-2025 11:26-0400Diastolic blood upwuinbc10 mm[Hg][facility]03-10-2025 11:26-0400 Heart rate99 /[facility]03-10-2025 11:26-0400 Respiratory rate12 /[facility]03-10-2025 11:26-0400 Systolic blood rieallrp924 mm[Hg][facility]02-06-2025 13:20-0500Body cmAllison Petznick DO Work Phone: 1(235)866-[address] [place], [place] [address]Snzpxmxqjj87-78-9404 13:20-0500Body mass index (BMI) [Ratio]34.01 kg/j9Huzmkop Petznick DO Work Phone: 1(198)601-[address] [place], [place] [address]Lexzpizzrc78-03-3492 13:20-0500Body temperature 98.49 [degF]Mirtha Petznick DO Work Phone: 1(556)247-[address] [place], [place] [address]Uakfbegtbf64-49-5365 13:20-0500Body lrnhuf25.09 kgAllison Petznick DO Work Phone: 1(845)285-[address] [place], [place] [address]Skjuodklpf79-89-0483 13:20-0500Diastolic blood nyvrztvm17 mm[Hg]Mirtha Petznick DO Work Phone: 2(055)005-[address] [place], [place] [address]Dtljpctdhl82-45-3207 13:20-0500Heart rate91 /min Mirtha Petznick DO Work Phone: 1(707)662-[address] [place], [place] [address]Hcengywkjz48-83-0848 13:20-3869VjK3% (BldA) [Mass fraction]96 %Mirtha Petznick DO Work Phone: 5(129)926-[address] [place], [place] [address]Eduhqpxwgp16-01-0734 13:20-0500Systolic blood uvgvnyvj757 mm[Hg]Mirtha Petznick DO Work Phone: 2(763)971-[address] [place], [place] [address]Ynictjnkex82-88-1558 10:35-0500Body fbewfp116.02 cmOhiohealth11-05-2024 10:35-0500Body mass index (BMI) [Ratio]34 kg/c6VqqylerrnOhiohealth11-05-2024 10:35-0500Body weight 87.14 kgOhiohealth11-05-2024 10:35-0500Diastolic blood awixpaxl05 mm[Hg][facility]11-05-2024 10:35-0500Heart hqaz852 /[facility]11-05-2024 10:35-0500Respiratory rate12 /[facility]11-05-2024 10:35-0500Systolic blood sashvlbr121 mm[Hg][facility]09-13-2024 10:47-0400Body wdjuow441 cmAllison Petznick DO Work Phone: 1(944)184-[address] [place], [place] [address]Fhdtygcucm63-16-5533 10:47-0400Body mass index (BMI) [Ratio]33.48 kg/r9Uefukph Petznick DO Work Phone: 0(245)059-[address] [place] [address]-13-2024 10:47-0400Body temperature 98.29 [degF]Mirtha Petznick DO Work Phone: 1(610)123-[address] [place], [place] [address]Tgwihigyaz92-58-8624 10:47-0400Body kwvofh41.73 kgAllison Petznick DO Work Phone: 2(245)556-[address] [place], [place] [address]Ixanucbqyq44-93-4114 10:47-0400Diastolic blood mm[Hg]Mirtha Petznick DO Work Phone: 1(167)366-[address] [place] [address]-13-2024 10:47-0400Heart qkjr092 /min Mirtha Petznick DO Work Phone: 3(404)055-[address] [place], [place] [address]Qnlanwujkq86-88-7965 10:47-0699ReD2% (BldA) [Mass fraction]95 %Mirtha Petznick DO Work Phone: 0(050)450-[address] [place] [address]-13-2024 10:47-0400Systolic blood plvylnaf398 mm[Hg]Mirtha Petznick DO Work Phone: 7(410)622-[facility] SatelliteG-modeKS Uqzsnjasoq57-89-3532 10:30-0400Body kqbryn446.02 cmBenjaFreedom Homes Recovery Center Other [employer] Other 469937-08-5213 10:30-0400Body mass index (BMI) [Ratio] 35.28 kg/k6Nbhktfod Ball Other [employer] Other 11-02-2023 10:30-0400Body aeendj71.36 kgBenjaevan Ball Other [employer] Other 11-02-2023 10:30-0400Diastolic blood flwyqyca47 mm[Hg] Evelio Dougherty Other [employer] Other 11-02-2023 10:30-0400Respiratory rate12 /minBenjamin Ball Other [employer] Other 11-02-2023 10:30-0400Systolic blood zhzxpjpu055 mm[Hg] Evelio Dougherty Other [employer] Other Encounters Encounter DateEncounter TypeCare ProviderFacilityStart: 06-30-2025 End: 47-89-9047Pzpkitfsk encounterAllallen Cervantes DO Work Phone: noms [facility] 230Start: 05-17-2025 End: 32-70-4758snthrzkzcxMATOEBJ M PETZNICKNot AvailableStart: 05-17-2025 End: 50-78-4962Xlbthn outpatient visit 25 minutesAllallen Cervantes DO Work Phone: noms [facility] 230Comment on above: Onychomycosis (Primary Dx); Type 1 diabetes mellitus without complication (HCC)Start: 05-17-2025 End: 06-09-8847Ryguoj jessynailaMirtha Cervantes DO Work Phone: noms [facility] 230Start: 05-17-2025 End: 70-28-2027Ctofqs flowsheetMirtha Sweeney Petznick DO Work Phone: noms [facility] 230Start: 04-19-2025 End: 56-70-2590Xjsftbq encounter statusIfrah Rodriguez DO Work Phone: [facility] Work Phone: start: 04-19-2025 End: 98-57-6617Hgqhnjfy preventive med est patient 40-64yrsMdilma Rodriguez DO Work Phone: noms [facility] OBGYNComment on above:Encounter for gynecological examination (general) (routine) with abnormal findings (Primary Dx); Menopausal hot flushes; Cystocele, male; Screening for malignant neoplasm of cervix; Encounter for screening for human papillomavirus (HPV); Other screening mammogramStart: 04-19-2025 End: 60-52-9716iywkkdkzvdBNTL J ALBERTOAPRAWIRANot AvailableStart: 03-29-2025 End: 58-29-8818fktsvgtugrOtypuweq Pergunter Work Phone: [facility] Work Phone: Start: 03-29-2025 End: 63-47-9353Bnlpmpm encounter proceduresilviaevan [employer] -[facility] Work Phone: Start: 12-29-2024 End: 84-22-6114Ejqvhq outpatient visit 25 minutesAllbrookwood baptist [facility] center Patel Cervantes DO Work Phone: noms [facility] 230Comment on above:Type 1 diabetes mellitus without complication (Primary Dx)Start: 12-29-2024 End: 47-08-6345boerrnbvrdJEQTWVV M PETZNICKNot AvailableStart: 11-02-2024 End: 69-27-5315usochhollvCocwzclgzMer[facility] Work Phone: Start: 11-02-2024 End: 73-93-0883Rtlvayi encounter procedureScotland [facility] Work Phone: Start: 10-01-2024 End: 38-55-3359Ahppiv outpatient visit 25 minutesAllison Patel Petznick DO Work Phone: noMS [facility] 230Comment on above:Type 1 diabetes mellitus with hyperglycemia (HCC) (CMS/HCC)Start: 10-01-2024 End: 08-76-7390slnjhmgenlMPOUWGR Patel PETZNICKNot AvailableStart: 06-30-2024 End: 63-69-4001ilswfwrhcpVgqksgevc [facility] Work Phone: Start: 06-30-2024 End: 63-37-2708Zmxejsyrf for general adult medical examination without abnormal findingsCleveland Clinic Medina Hospitaltart: 06-30-2024 End: 33-84-5344Qqbmjva encounter procedureScotland Memorial Hospital [facility] Work Phone: Start: 64-36-0263Aroowqd encounter statusCleveland Clinic Medina Hospitaltart: 02-87-2924Dcq-patient / Non-visitFirsentara [facility] hospital Physician [facility] Work Phone: Start: 06-10-2024 End: 61-90-0197Wbphumtax Result EncounterStepamanda Meng PLACEMENT MANAGER Work Phone: noms External Department UnsolicitedStart: 06-10-2024 End: 32-39-7826Yxvxiapng Result EncounterStepamanda Meng PLACEMENT MANAGER Work Phone: noms External Department UnsolicitedStart: 06-10-2024 End: 67-17-8236hszqrznmhdDdynbfunv HOFFMANFacility:FTMCStart: 06-10-2024 End: 47-03-9193Awxgzeu encounter procedureSkaren MENG [facility] Start: 05-08-2024 End: 51-50-5785Octzyo outpatient visit 25 minutesMirtha Cervantes DO Work Phone: noms [facility] 230Comment on above:Type 1 diabetes mellitus with hyperglycemia (HCC) (CMS/HCC) (Primary Dx); Type 1 diabetes mellitus without complication (CMS/HCC)Start: 03-26-2024 End: 48-62-8449ayuuacphkeSptkxnbad HOFFMANFacility:FTMCStart: 03-26-2024 End: 75-69-4742Shxjawm encounter procedureSkaren MENG [facility] Start: 09-26-2023 End: 24-17-6048clovyffzcwFpzdksgh Ball Other [employer] Other Start: 23-67-7847Tqqjxvqqt encounterEvelio Dougherty Medical ClinicStart: 09-02-2023 End: 57-81-6364bvgfvpvudkPmdhlvwz Ball Other [facility] [employer] Other Start: 16-47-3069Bmrwhcjei encounterBebob Dougherty Medical ClinicStart: 06-27-2023 End: 51-50-0620fbuuwqebfhSaqkamcv Ball Other [employer] Other Start: 77-16-0753Zbdlugmlt for general adult medical examination without abnormal findingsBebob Dougherty Medical ClinicStart: 44-24-1926Feefssuw preventive med est patient 40-64yrsBebob Dougherty Medical ClinicStart: 10-31-2021 End: 51-75-6259lexjfnluwlRX EVELIO BALLFacility:I3Zmqqe: 09-17-2018 End: 83-72-7779Ykeijlf encounter procedureBebob DoughertyFacility:[facility] Procedures DateProcedureProcedure DetailPerforming ClinicianStart: 92-86-9306Dabggpztke glycosylated q2aMofwxxm Patel Petjerichoick DO Work Phone: Start: 61-25-9115Colapyznsm glycosylated f6rNnkqgfa Patel Petsherwin DO Work Phone: Start: 18-23-0835YJB (POC)Start: 68-27-8354Ozcjisvqsp glycosylated u9wRjhdlpe Patel Petjerichoick DO Work Phone: Start: 61-64-5836RY MAMM SCREEN W/CAD IF PERF AND 3D BILStephanie F Luiz PLACEMENT MANAGER Work Phone: start: 55-99-0447FnuqiexubftSarrdjg Petznick DO Work Phone: Start: 88-94-9580Zhfyvgzyil glycosylated d1vRznfptuMirtha Cervantes DO Work Phone: Start: 27-15-1931Dglrfjwfqms observation [Identifier] in Cervix by Cyto stainMirtha Cervantes DO Work Phone: Start: 54-46-5998HleyziqnydhWyqeiqb Petznick DO Work Phone: Start: 46-51-8458Vzcxahumukgqi (morphologic abnormality)Sandra MENG start: 77-77-4573Kleidgi of left oophorectomySandra MENG comment on above:Due to cyst. Plan of Treatment DateCare ActivityDetailAuthorStart: 62-26-0491Lrwdzjdvh for malignant neoplasm of cervixNOMS HealthcareStart: 77-00-2810Lmlsqjfwv for malignant neoplasm of cervixNOMS HealthcareStart: 99-25-9061Xyhosaqmg for malignant neoplasm of cervix Pap SmearNOMS HealthcareStart: 15-82-0555Bbfqwziic for malignant neoplasm of colonNOMS HealthcareStart: 04-21-2026 End: 03-81-9488Yekeisy encounter mxqaepmhx24/27/2026 9:45 AM EDT Office Visit AGUSTÍN MCCLAIN [address] [phone] Ifrah Rodriguez DO [address] [phone] AGUSTÍN MCCLAIN Start: 09-06-2025 End: 80-04-7520Vdysgto encounter pfoiqbdxj88/12/2026 11:15 AM EST Office Visit AGUSTÍN [facility] [address] [place] [address] Mirtha Cervantes DO [address] [place] [address] [facility] 230 Start: 06-30-2025 End: 32-35-3595Intqyjczcrjyj metabolic 2000 panel - Serum or PlasmaComprehensive metabolic panel Lab Routine Type 1 diabetes mellitus without complications (HCC) Expected: 06/30/2025, Expires: 06/30/2026[facility] Work Phone: Comment on above:Expected: 06/30/2025, Expires: 06/30/2026Start: 90-91-2445Lehadsaod for malignant neoplasm of breastMammogram NOM HealthcareStart: 05-17-2025 End: 51-86-3075Dtgzvmy encounter wnpsglqne24/22/2025 2:45 PM EDT Office Visit [facility] [address] [place] [address] Mirtha Cervantes, DO [address] [place] [address] [facility] 230 Start: 77-87-1906RLVYE-19 Vaccine ( season)COVID-19 Vaccine ( season)NOMS HealthcareStart: 56-61-2670Zjxjcfmdd vaccinationInfluenza Vaccine (#1)NOM HealthcareStart: 04-01-2025 End: 24-21-9817Owwyclz encounter hcndpapjc02/07/2025 11:15 AM EDT Office Visit [facility] [address] [place] [address] Mirtha Cervantes, DO [address] [place] [address] [facility] 230Start: 03-29-2025 End: 77-17-9279Tijukbm encounter pakkpbghv46/04/2025 11:15 AM EDT Office Visit [facility] [address] [phone] Ifrah Rodriguez, DO [address] [phone] NOMS OBStart: 12-29-2024 End: 10-24-4097Tvmznrc encounter wttvocqik93/06/2025 10:45 AM EDT Office Visit [facility] [address] [place] [address] Mirtha Cervantes M, DO [address] [place], [place] [phone] [facility] 230Start: 09-08-2024 End: 84-76-6516Ufxbywc encounter dblesahrs33/14/2025 10:15 AM EST Office Visit [facility] [address] [place] [address] Mirtha Cervantes, DO [address] [place] [address] [facility] 230Start: 82-43-3679Oaheglemr vaccination Influenza Vaccine (#1)[facility] HealthcareStart: 87-40-9652Fxfpdtgnc for malignant neoplasm of breastMammogramNOKS HealthcareStart: 17-00-0908Iaivcnati for malignant neoplasm of colonNOKS HealthcareDBT Breast - bilateral screening Bilateral screening mammogram with tomosynthesis Imaging Routine Other screening mammogram Ordered:04/19/2025[facility] Work Phone: comment on above:Ordered: 04/19/2025IGP, APT HPV,RFX 16/18,45IGP, APT HPV,RFX 16/18,45 Lab Routine Screening for malignant neoplasm of cervix Encounter for screening for human papillomavirus (HPV) Ordered: 04/19/2025[facility] HospitalComment on above:Ordered: 04/19/2025[facility] Immunizations Immunization DateImmunizationNotesCare IpzwlebdVtbntomy02-29-1407jrupiclqu, seasonal, injectable, preservative freeAllison Petznick DO Work Phone: [facility] HospitalBicvonsedb18-72-2852ibwhxnfne virus vaccine, unspecified formulationMona Nataprawira DO Work Phone: [facility] HospitalOvzmacmapa91-87-6280ZTWHD-76 Vaccine Pfizer - Documentation Purposes OnlyBenjamin Ball Other [facility]10-10-2023influenza, injectable, quadrivalent, preservative freeBenjamin Ball Other [facility]10-10-2023influenza virus vaccine, unspecified formulationAllison Petznick DO Work Phone: [facility] HospitalWshxsnowwj94-67-7198vxcplmknz, seasonal, injectable, preservative freeAllison Petznick DO Work Phone: [facility] HospitalBnknkxrfkp88-80-6218skqkae vaccine recombinant Mirtha Petznick DO Work Phone: [facility] HospitalRqtpzwzugc08-01-3234AFKEJ-22 PfizerBenjamin Ball Other [facility]08-11-2022COVID-19 Vaccine Pfizer - Documentation Purposes OnlyBenjamin Ball Other [facility]01-05-2022COVID-19 Vaccine Pfizer - Documentation Purposes OnlyBenjamin Ball Other [facility]10-05-2021influenza, injectable, quadrivalent, preservative freeAllison Petznick DO Work Phone: [facility] HospitalCttyueiszl36-93-8867dljzfnxbub, tetanus toxoids and pertussis vaccineAllison Petznick DO Work Phone: [facility] HospitalPeqgzgqsrc23-21-4275YPFDF-33 Vaccine Pfizer - Documentation Purposes OnlyBenjamin Ball Other [facility]12-22-2020Influenza, injectable, Madin [place] Canine Kidney, preservative free, quadrivalentAllison Petznick DO Work Phone: noSaint [facility] ServicesJrjuqmdiev83-31-2545ojdhqfyfi, injectable, quadrivalent, preservative freeAllison Petznick DO Work Phone: 1(419)[address] [place], [place] [address]Vhehhodjvp66-23-6614pljnbcpvq, injectable, quadrivalent, preservative freeAllison Petznick DO Work Phone: 1(419)[address] [place], [place] [address]Cjeaikwjtt49-87-5434ybifwqsse, injectable, quadrivalent, preservative freeAllison Petznick DO Work Phone: 1(419)[address] [place], [place] [address]Hcdsswbmcf05-38-7831cyrmkg vaccine, liveAllison Petznick DO Work Phone: 1(419)[address] [place], [place] [address]Ajsqjnnreh67-30-0598dbtzfwquc, seasonal, injectable, preservative freeAllison Petznick DO Work Phone: 1(419)[address] [place], [place] [address]Povmlchosf30-88-9959ipnbkerhr, seasonal, injectableAllison Petznick DO Work Phone: 1(419)[address] [place], [place] [address]Vaooxjvysv02-41-4182nfzbpiyea virus vaccine, unspecified formulationAllison Petznick DO Work Phone: [phone] [place] [address] Payers DatePayer CategoryPayerPolicy [id number] Health [id number] 00-02-5489Awdbqrs Care O (unspecified)[id number] 50-31-1660Dtpjyds Health [id number] 2.0.1.284585.3.579.2.25600-71-0207Sastaxp75375771 2.840.1.521507.3.579.2.31660-75-4124Xgfgani23608653 2.0.1.061566.3.579.2.12092-11-2531Rqwqwto11004396 2.840.1.122578.3.579.[id number] 2.840.1.716066.3.579.2.043930-65-5334Zegkoue19904825 2..1.166031.3.579.2.519888-09-8692Lsotkyc7862108 2..1.890425.3.579.2.153474-44-1634Nvikkmd2554293 2..1.593711.3.57[id number] 2.0.1.467633.3.579.2.561ZicrfaxLY930XA 2..1.195027.19 Social History DateTypeDetailFacilityUnknown if ever smokedNonort[facility] [place] Other Start: 06-11-2023 End: 50-15-0217Hlp Assigned At [facility] Townshiptart: 04-07-2020 End: [id number] smoking statusNever smoked tobacco (finding)[facility] CenterStart: [id number] Assigned At [facility] Centertart: [id number] use and exposureSmokeless tobacco non-userNOMS HealthcareStart: 05-08-2024 End: [id number] beverage intakeCurrent drinker of alcohol (finding)[facility] HealthcareStart: 06-11-2023 End: [id number] beverage intakeNOMS HealthcareWithin the last year, have you been afraid of your partner or ex-partner?NoNOMS HealthcareStart: [id number] you belong to any clubs or organizations such as taoism groups, unions, fraternal or athletic groups, or school groups?Patient declinedNOMS HealthcareAre you now , , , , never or living with a partner?MarriedNOMS HealthcareHow often to you have a drink containing alcohol?Monthly or lessNOMS HealthcareHow often do you have 6 or more drinks on 1 occasion?NeverNOMS HealthcareDo you feel stress - tense, restless, nervous, or anxious, or unable to sleep at night because yourmind is troubled all the time - these days [OSQ]Only a [facility]Start: 01-31-2023 Alcohol Commentmonthly or lessJORDAN VALLEY MEDICAL [facility]ENTER HealthcareStart: [id number] assigned at birthNot on [facility] CenterStart: 94-98-4756UijGiombg (finding)OhiohealthHow many standard drinks containing alcohol do you have on a typical day?1 or 2NOzarks Medical Center Medical Equipment Procedure CodeEquipment CodeEquipment Original TextEquipment IdentifierDates Start: 07-24-2021 Functional Status ZeffLifppsemryDadghlHpsfidoy70-05-3313Zreod score [AUDIT-C]1 05/17/2025 2:56 PM EDT Louann Noriega [facility] CurliePwpijllpzx99-89-5797Ochpxfc Health Questionnaire 2 item (PHQ-2) [Reported][facility] HospitalWqxczbsxit28-05-5209Wesda score [AUDIT-C]1 04/19/2025 8:38 AM EDT Janeen Hernandez [facility] CurlieYwonqeqmua43-62-3375Apsirgw Health Questionnaire 2 item (PHQ-2) [Reported][facility] HospitalDxchmujcbi61-35-4789Bpuhrio Health Questionnaire 2 item (PHQ-2) [Reported][facility] Clinical Notes 10-31-2021 to 06-30-2025 Note Date & [id number] Telephone encounter Note* Telephone Encounter - Mirtha Cervantes DO - 06/30/2025 10:07 AM EST ----- Message from Dr. Mirtha Cervantes sent at 05/17/2025 3:12 PM EDT ----- Regarding: labs Please notify pt she is due to recheck nonfasting labs for AST/ALT due to being on lamisil. Order sent to [employer]. thanks [facility] [id number] Miscellaneous Notes* Telephone Encounter - Mirtha Cervantes DO - 06/30/2025 10:07 AM EST ----- Message from Dr. Mirtha Cervantes sent at 05/17/2025 3:12 PM EDT ----- Regarding: labs Please notify pt she is due to recheck nonfasting labs for AST/ALT due to being on lamisil. Order sent to [employer]. thanks documented in this encounterCedar County Memorial HospitalFrtugqvano90-55-1690 History of Present illness Narrative* Mirtha Cervantes DO - 05/18/2025 8:12 AM EDTAssociated Problem(s): Type 1 diabetes mellitus without complication (HCC) During the appointment today all pertinent labs, imaging, health maintenance, and glucose readings were reviewed. Encouraged to check blood glucose throughout the day with some fasting and some PP readings. They are to bring their glucose meter/cgm in to all appointments. All of the patients questions, treatment options, and current care plan and goals were discussed. Acopy of this along with pertinent instructions were given to the patient at the end of the appointment. The patient voices understanding of all of this and is to call in between appointments if they have any problems or questions. Shad Kunz control is stable overall. , Will stay on current medications. , The patient is wearing their cgm on a daily basis and making decisions in regards to adjusting insulin daily as well for at least the last 60 days , Discussed dietary changes at length. Encouraged to limit simple carbsand focus more on healthy protein/fat with all meals and snacks. They should also avoid any sugary drinks. , Instructions given today include: Pump instructions and Dietary education. Discussed tightening carb ratio in the afternoon but she wants to work on improving her diet and thinks that will help instead. Will stay with current pump settings. * Mirtha Cervantes DO - 05/17/2025 2:45 PM EDT Images from the original note were not included. Shad Kunz is a 64 y.o. female presents with chief complaint of Diabetes HPI: Diabetes Mellitus Follow-up: Shad Kunz is here for follow-up evaluation of diabetes mellitus. The initial diagnosis of Type 1 diabetes was made in 2006 Diabetes complications: none Hx of diabetes medications tried: humalog and novolog- not effective She has been checking her blood glucose with a Omnipod 5 -LINKED IN GLOOKO-and Dexcom G6 CGM on a daily basis. Bg run smooth overnight and in the am but tend to spike more in the afternoon/evening. Last A1c: 7.7 (12/29/24) Last eye exam: 07/01/2024 Current concerns include: She has been caring for her parents after her mom fell and broke her hip in December. Diet has been different due to this. She is cooking meals for her parents and eating different foods then she would inthe past. She had covid in March and bg readings were also high during that Bg levels: a little higher Diet: limiting and counting carbs Drinks: water, coffee with half and half, occasional diet coke. Glass of wine on occasion Exercise: walking 5 days a week (15 min) Hypoglycemia: a couple in the past few weeks overnight, she is sleeping on a couch and may be laying on it SUBJECTIVE: PROBLEM LIST SOCIAL ALLERGIES: Patient Active Problem List Diagnosis Bloating Menopausal symptom Type 1 diabetes mellitus without complication ([facility]) Class 2 severe obesity due to excess calories with serious comorbidity and body mass index (BMI) of35.0 to 35.9 in adult ([facility]) Social History Tobacco Use Smoking status: Never Smokeless tobacco: Never Vaping Use Vaping status: Never Used Substance Use Topics Alcohol use: Yes Alcohol/week: 2.0 standard drinks of alcohol Types: 2 Standard drinks or equivalent per week Comment: monthly or less Drug use: Never Allergies Allergen Reactions Dust Mite Extract Latex Sensitive to bandages Molds & Smuts Pollen Extract Synopsis SmartLink 05/17/2025 05/03/2025 00:00 02/18/2025 00:00 Antidiabetic medications Glucagon 3 mg Once PRN NA (3 MG/DOSE POWD) Administer 3 mg into affected nostril(s) 1 (one) time ifneeded for low blood sugar Administer 3 mg into affected nostril(s) 1 (one) time if needed for low blood sugar Insulin Aspart (w/Niacinamide) INJECT ONE DOSE DIRECTEDSEE ADMINISTRATION INSTURCTIONS PER PUMP MAXIMUM DAILY 150 UNITS (100 UNIT/ML SOLN)-Discontinued INJECT ONE DOSE DIRECTEDSEE ADMINISTRATION INSTURCTIONS PER PUMP MAXIMUM DAILY 150 UNITS (100 UNIT/ML SOLN) Insulin Aspart (w/Niacinamide) INJECT ONE DOSE DIRECTED SEE ADMINISTRATIONINSTRUCTIONS PER PUMP MAXIMUM DAILY 150UNITS (100 UNIT/ML SOLN) INJECT ONE DOSE DIRECTED SEE ADMINISTRATIONINSTRUCTIONSPER PUMP MAXIMUM DAILY 150UNITS (100 UNIT/ML SOLN) Insulin Glargine 50 Units Daily SC 50 Units Daily SC 50 Units Daily SC Labs [facility] HEMOGLOBIN A1C/HEMOGLOBIN.TOTAL:MFR:PT:BLD:QN: 7.5 Outpatient prescription Medication marked as long-term Patient-reported The ASCVD Risk score (Fernando VIEIRA, et al., 2019) failed to calculate for the following reasons: Cannot find a previous HDL lab Cannot find a previous total cholesterol lab REVIEW OF SYMPTOMS: Review of Systems Constitutional: Positive for fatigue. Negative for appetite change and unexpected weight change. Eyes: Negative for visual disturbance. Respiratory: Negative for cough, shortness of breath and wheezing. Cardiovascular: Negative for chest pain, palpitations and leg swelling. Neurological: Negative for numbness. Endocrine: Negative for polydipsia, polyphagia and polyuria. OBJECTIVE: 05/17/2025 2:52 PM 04/19/2025 8:29 AM 12/29/2024 10:50 AM Vitals BMI 34.19 kg/m2 34.01 kg/m2 34.01 kg/m2 Systolic 126 122 118 Diastolic 72 74 66 Heart Rate 88 88 Temp 98 F 99.1 F Height (in) 5' 3 5' 3 5' 3 Weight (lb) 193 192 192 Visit Report Report Report Report Physical Exam Constitutional: General: She is not in acute distress. Appearance: Normal appearance. Cardiovascular: Rate and Rhythm: Normal rate and regular rhythm. Heart sounds: No murmur heard. No friction rub. No gallop. Pulmonary: Breath sounds: Normal breath sounds. No wheezing, rhonchi or rales. Musculoskeletal: General: No swelling. Skin: Comments: Thickened toenail on the right foot Neurological: Mental Status: She is alert. ASSESSMENT AND PLAN: Problem List Items Addressed This Visit Type 1 diabetes mellitus without complication (HCC) During the appointment today all pertinent labs, imaging, health maintenance, and glucose readings were reviewed. Encouraged to check blood glucose throughout the day with some fasting and some PP readings. They are to bring their glucose meter/cgm in to all appointments. All of the patients questions, treatment options, and current care plan and goals were discussed. Acopy of this along with pertinent instructions were given to the patient at the end of the appointment. The patient voices understanding of all of this and is to call in between appointments if they have any problems or questions. Shad Kunz control is stable overall. , Will stay on current medications. , The patient is wearing their cgm on a daily basis and making decisions in regards to adjusting insulin daily as well for at least the last 60 days , Discussed dietary changes at length. Encouraged to limit simple carbsand focus more on healthy protein/fat with all meals and snacks. They should also avoid any sugary drinks. , Instructions given today include: Pump instructions and Dietary education. Discussed tightening carb ratio in the afternoon but she wants to work on improving her diet and thinks that will help instead. Will stay with current pump settings. Relevant Orders POCT glycosylated hemoglobin (Hb A1C) docked device (Completed) Other Visit Diagnoses Onychomycosis - Primary Relevant Medications terbinafine (LamISIL) 250 MG tablet Will check LFT in 6 weeks while on lamisil. Follow up in about 3 months (around 08/16/2025) for Recheck. Patient's Medications New Prescriptions TERBINAFINE (LAMISIL) 250 MG TABLET Take 1 tablet (250 mg) by mouth Daily Previous Medications ACETONE, URINE, TEST (KETOSTIX) STRIP if needed for high blood sugar ASPIRIN 81 MG CHEWABLE TABLET 1 (one) time each day at the same time. CONTINUOUS GLUCOSE SENSOR (DEXCOM G6 SENSOR) MISC USE 1 SENSOR (SEE ADMINISTRATION INSTRUCTIONS) CONTINUOUS GLUCOSE TRANSMITTER (DEXCOM G6 TRANSMITTER) MISC USE INSTRUCTED EVERY 90 DAYS FIASP 100 UNIT/ML SOLUTION INJECT ONE DOSE DIRECTED SEE ADMINISTRATIONINSTRUCTIONS PER PUMP MAXIMUM DAILY 150UNITS GLUCAGON (BAQSIMI ONE PACK) 3 MG/DOSE NASAL POWDER Administer 3 mg into affected nostril(s) 1 (one)time if needed for low blood sugar INSULIN DISPOSABLE PUMP (OMNIPOD 5 [id number] PODS GEN 5) MISC Inject 1 Device under the skin every other day Pump settings- Basal: 12A 2.0, 10A 1.6, 5P 2.6, ICR: 12A 4, ISF: 35 INSULIN GLARGINE (LANTUS SOLOSTAR) 100 UNIT/ML PEN Inject 50 Units under the skin in the morning. LEVOCETIRIZINE (XYZAL) 5 MG TABLET Take 5 mg by mouth in the evening LEVOTHYROXINE (SYNTHROID, LEVOXYL) 175 MCG TABLET Take 1 tablet by mouth in the morning. Take before meals. 1 tablet in the morning on an empty stomach Orally Once a day. MONTELUKAST (SINGULAIR) 10 MG TABLET Daily as needed MULTIPLE VITAMIN (MULTI VITAMIN DAILY) TABLET 1 (one) time each day at the same time. MULTIPLE VITAMINS-MINERALS (AIRBORNE) CHEWABLE TABLET as directed Orally Modified Medications No medications on file Discontinued Medications No medications on file I have reviewed and reconciled the history and medication list with the patient today. documented in this encounterCedar County Memorial [id number] History of Present illness Narrative* Ifrah Rodriguez DO - 04/19/2025 8:30 AM EDT Images from the original note were not included. Ifrah Rodriguez DO Obstetrics and Gynecology Name: Shad Kunz Date/Time of Service:04/19/2025 9:02 AM :1960 Age: 64 y.o. Subjective Shad Kunz is a 64 y.o. female who is here for a routine exam. Gynecologic Exam (Patient here for a yearly. Denies problems. Mammogram order sent. 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 LMP: No LMP recorded. Patient is postmenopausal. Last Mammogram Results for orders placed in visit on 04/13/20 Bilateral screening mammogram with tomosynthesis Narrative PERFORMED AT [facility] LOCATION:[id number] ABNORMAL SEE REPORT Current Outpatient Medications on File Prior to Visit Medication Sig Dispense Refill acetone, urine, test (Ketostix) strip if needed for high blood sugar ASPIRIN 81 MG chewable tablet 1 (one) time each day at the same time. Continuous Glucose Sensor (Dexcom G6 Sensor) misc USE 1 SENSOR (SEE ADMINISTRATION INSTRUCTIONS) 9 each 3 Continuous Glucose Transmitter (Dexcom G6 transmitter) misc USE INSTRUCTED EVERY 90 DAYS 1 each 3 glucagon (Baqsimi One Pack) 3 MG/DOSE nasal powder Administer 3 mg into affected nostril(s) 1 (one)time if needed for low blood sugar Insulin Aspart, w/Niacinamide, (Fiasp) 100 UNIT/ML solution INJECT ONE DOSE DIRECTEDSEE ADMINISTRATION INSTURCTIONS PER PUMP MAXIMUM DAILY 150 UNITS 150 mL 1 Insulin Disposable Pump (Omnipod 5 [id number] Pods Gen 5) misc Inject 1 Device under the skin every other day Pump settings- Basal: 12A 2.0, 10A 1.6, 5P 2.6, ICR: 12A 4, ISF: 35 45 each 3 insulin glargine (Lantus SoloStar) 100 UNIT/ML pen Inject 50 Units under the skin in the morning. 15 mL 3 levocetirizine (Xyzal) 5 MG tablet Take 5 mg by mouth in the evening levothyroxine (Synthroid, Levoxyl) 175 MCG tablet Take 1 tablet by mouth in the morning. Take before meals. 1 tablet in the morning on an empty stomach Orally Once a day. montelukast (Singulair) 10 MG tablet Daily as needed Multiple Vitamin (Multi Vitamin Daily) tablet 1 (one) time each day at the same time. Multiple Vitamins-Minerals (Airborne) chewable tablet as directed Orally No current facility-administered medications on file prior to visit. Past Medical History: Diagnosis Date Bloating COVID-19 09/2021, 05/2022 Fracture of radius right Graves disease H/O being hospitalized DX with diabetes H/O thyroidectomy Hyperlipidemia Lichen planus Menopausal symptoms Type 1 diabetes (HCC) Past Surgical History: Procedure Laterality Date OOPHORECTOMY 1999 THYROIDECTOMY 2000 Family History Problem Relation Name Age of Onset Dementia Mother Hypertension Mother No Known Problems Father Diabetes Sister No Known Problems Brother No Known Problems Daughter No Known Problems Son Graves' disease Paternal Grandmother Melanoma Neg Hx Psoriasis Neg Hx Social History Tobacco Use Smoking status: Never Smokeless tobacco: Never Substance Use Topics Alcohol use: Yes Alcohol/week: 2.0 standard drinks of alcohol Types: 2 Standard drinks or equivalent per week Comment: monthly or less Drug use: Never OB History No obstetric history on file. Allergies Allergen Reactions Dust Mite Extract Latex Sensitive to bandages Molds & Smuts Pollen Extract Review of Systems Constitutional: Negative. Respiratory: Negative. Cardiovascular: Negative. Gastrointestinal: Negative. Musculoskeletal: Negative. Skin: Negative. Neurological: Negative. Endocrine: Negative. Objective BP 122/74 Ht 5' 3 Wt 192 lb BMI 34.01 kg/m Body mass index is 34.01 kg/m . Physical Exam Genitourinary: Urethral meatus normal. No lesions in the vagina. Genitourinary Comments: Valsalva revealed stage II-III cystocele Right Labia: No lesions. Left Labia: No lesions. No vaginal discharge. Anterior vaginal prolapse present. Moderate vaginal atrophy present. Right Adnexa: not tender and no mass present. Left Adnexa: not tender and no mass present. No cervical lesion. Uterus is not tender. Uterus is anteverted. Urethral hypermobility present. No urethral stress urinary incontinence with cough stress test present. Bladder is not tender. Rectum: No rectovaginal septum nodularity. Breasts: Right: No mass, nipple discharge, skin change or tenderness. Left: No mass, nipple discharge, skin change or tenderness. HENT: Head: Normocephalic and atraumatic. Mouth/Throat: Mouth: Mucous membranes are moist. Cardiovascular: Rate and Rhythm: Normal rate and regular rhythm. Pulmonary: Effort: Pulmonary effort is normal. Breath sounds: Normal breath sounds. Abdominal: General: Bowel sounds are normal. Palpations: Abdomen is soft. Musculoskeletal: General: No tenderness. Cervical back: Neck supple. Neurological: Mental Status: She is alert and oriented to person, place, and time. Skin: General: Skin is warm and dry. Psychiatric: Mood and Affect: Mood normal. Vitals and nursing note reviewed. Assessment/Plan 1. Encounter for gynecological examination (general) (routine) with abnormal findings (Primary) Breast and pelvic exam performed. Discussed findings. Patient to contact the office with any changes to her gynecological condition. 2. Menopausal hot flushes Stable, continue to monitor. Patient declined any medical treatment. Patient to contact the office with any concerns/questions 3. Cystocele, male Discussed findings. Stressed the importance of complete bladder emptying and avoiding long periods between voiding. Patient voiced understanding 4. Screening for malignant neoplasm of cervix Cervical cytology and co-testing performed. Patient to contact the office for results - IGP, APT HPV,RFX 16/18,45 5. Encounter for screening for human papillomavirus (HPV) - IGP, APT HPV,RFX 16/18,45 6. Other screening mammogram Mammogram order sent to [facility] and given to patient. Patient to schedule appointment - Bilateral screening mammogram with tomosynthesis ICD-10-CM 1. Encounter for gynecological examination (general) (routine) with abnormal findings Z01.411 2. Menopausal hot flushes N95.1 3. Cystocele, male N32.89 4. Screening for malignant neoplasm of cervix Z12.4 IGP, APT HPV,RFX 16/18,45 5. Encounter for screening for human papillomavirus (HPV) Z11.51 IGP, APT HPV,RFX 16/18,45 6. Other screening mammogram Z12.31 Bilateral screening mammogram with tomosynthesis Follow up in about 1 year (around 04/19/2026) for Yearly. Ifrah Rodriguez DO 04/19/2025 9:02 AM documented in this encounterCedar County Memorial HospitalDnzuokqyei54-96-9331 History of Present illness Narrative* Mirtha Cervantes DO - 12/29/2024 12:38 PM EDTAssociated Problem(s): Type 1 diabetes mellitus without complication During the appointment today all pertinent labs, imaging, health maintenance, and glucose readings were reviewed. Encouraged to check blood glucose throughout the day with some fasting and some PP readings. They are to bring their glucose meter/cgm in to all appointments. All of the patients questions, treatment options, and current care plan and goals were discussed. Acopy of this along with pertinent instructions were given to the patient at the end of the appointment. The patient voices understanding of all of this and is to call in between appointments if they have any problems or questions. Shad Kunz control is stable overall. , Will stay on current medications. , The patient is wearing their cgm on a daily basis and making decisions in regards to adjusting insulin daily as well for at least the last 60 days , Discussed dietary changes at length. Encouraged to limit simple carbsand focus more on healthy protein/fat with all meals and snacks. They should also avoid any sugary drinks. , Instructions given today include: Pump instructions and Dietary education. Discussed usinga food journal for accountability with her diet to help with weight loss. Also encouraged to get atleast 150 min moderate intensity exercise weekly with at least 2 days of resistance training. * Mirtha Cervantes DO - 12/29/2024 10:45 AM EDT Images from the original note were not included. Shad Kunz is a 64 y.o. female presents with chief complaint of Diabetes HPI: Diabetes Mellitus Follow-up: Shad Kunz is here for follow-up evaluation of diabetes mellitus. The initial diagnosis of Type 1 diabetes was made in 2006 Diabetes complications: none Hx of diabetes medications tried: humalog and novolog- not effective She has been checking her blood glucose with a Omnipod 5 -LINKED IN [employer]OOKO-and Dexcom G6 CGM on a daily basis. She is spiking at times with her meals but this is not always consistent. She is puttingless carbs in her pump than what she is eating if the pump says to give her high doses of insulin due to fear of dropping low. She is frustrated with her weight and wants to lose weight. Last A1c: 8.2 (10/01/24) Last eye exam: 07/01/2024 Current concerns include: Had a couple pump/sensor malfunctions a week and a half ago. She had to re- download the apps to make it work again Bg levels: similar to last visit Diet: limiting and counting carbs Drinks: water, coffee with half and half, occasional diet coke. Glass of wine on occasion Exercise: walking 5 days a week (15 min) Hypoglycemia: maybe couple times a month SUBJECTIVE: PROBLEM LIST SOCIAL ALLERGIES: Patient Active Problem List Diagnosis Bloating Menopausal symptom Type 1 diabetes mellitus without complication Class 2 severe obesity due to excess calories with serious comorbidity and body mass index (BMI) of35.0 to 35.9 in adult ([facility]) Social History Tobacco Use Smoking status: Never Smokeless tobacco: Never Substance Use Topics Alcohol use: Yes Alcohol/week: 2.0 standard drinks of alcohol Types: 2 Standard drinks or equivalent per week Comment: monthly or less Drug use: Never Allergies Allergen Reactions Dust Mite Extract Latex Sensitive to bandages Molds & Smuts Pollen Extract Synopsis SmartLink 12/29/2024 11/12/2024 00:00 10/01/2024 Antidiabetic medications Glucagon 3 mg Once PRN NA (3 MG/DOSE POWD) Administer 3 mg into affected nostril(s) 1 (one) time ifneeded for low blood sugar Administer 3 mg into affected nostril(s) 1 (one) time if needed for low blood sugar Insulin Aspart (w/Niacinamide) 1 Dose See admin instructions Per pump (max daily 150 units) IJ (100UNIT/ML SOLN)-Discontinued 1 Dose See admin instructions Per pump (max daily 150 units) IJ (100 UNIT/ML SOLN) Insulin Aspart (w/Niacinamide) INJECT ONE DOSE DIRECTEDSEE ADMINISTRATION INSTURCTIONS PER PUMP MAXIMUM DAILY 150 UNITS (100 UNIT/ML SOLN) INJECT ONE DOSE DIRECTEDSEE ADMINISTRATION INSTURCTIONS PER PUMP MAXIMUM DAILY 150 UNITS (100 UNIT/ML SOLN) Insulin Aspart Per pump (max daily 150 units) (100 UNIT/ML SOLN) -Discontinued (Therapy comp) Insulin Glargine 50 Units Daily SC 50 Units Daily SC 50 Units Daily SC Labs [facility] HEMOGLOBIN A1C/HEMOGLOBIN.TOTAL:MFR:PT:BLD:QN: 7.7 8.2 Outpatient prescription Medication marked as long-term Patient-reported The ASCVD Risk score (Fernando DK, et al., 2019) failed to calculate for the following reasons: Cannot find a previous HDL lab Cannot find a previous total cholesterol lab REVIEW OF SYMPTOMS: Review of Systems Constitutional: Negative for appetite change, fatigue and unexpected weight change. Eyes: Negative for visual disturbance. Respiratory: Negative for cough, shortness of breath and wheezing. Cardiovascular: Negative for chest pain, palpitations and leg swelling. Neurological: Negative for numbness. Endocrine: Negative for polydipsia, polyphagia and polyuria. OBJECTIVE: 12/29/2024 10:50 AM 10/01/2024 1:20 PM 05/08/2024 10:47 AM Vitals BMI 34.01 kg/m2 34.01 kg/m2 33.48 kg/m2 Systolic 118 130 132 Diastolic 66 62 72 Heart Rate 88 91 100 Temp 99.1 F 98.5 F 98.3 F Height (in) 5' 3 5' 3 5' 3 Weight (lb) 192 192 189 Visit Report Report Report Report Physical Exam Constitutional: General: She is not in acute distress. Appearance: Normal appearance. Cardiovascular: Rate and Rhythm: Normal rate and regular rhythm. Heart sounds: No murmur heard. No friction rub. No gallop. Pulmonary: Breath sounds: Normal breath sounds. No wheezing, rhonchi or rales. Musculoskeletal: General: No swelling. Neurological: Mental Status: She is alert. ASSESSMENT AND PLAN: Problem List Items Addressed This Visit Type 1 diabetes mellitus without complication - Primary During the appointment today all pertinent labs, imaging, health maintenance, and glucose readings were reviewed. Encouraged to check blood glucose throughout the day with some fasting and some PP readings. They are to bring their glucose meter/cgm in to all appointments. All of the patients questions, treatment options, and current care plan and goals were discussed. Acopy of this along with pertinent instructions were given to the patient at the end of the appointment. The patient voices understanding of all of this and is to call in between appointments if they have any problems or questions. Shad Kunz control is stable overall. , Will stay on current medications. , The patient is wearing their cgm on a daily basis and making decisions in regards to adjusting insulin daily as well for at least the last 60 days , Discussed dietary changes at length. Encouraged to limit simple carbsand focus more on healthy protein/fat with all meals and snacks. They should also avoid any sugary drinks. , Instructions given today include: Pump instructions and Dietary education. Discussed usinga food journal for accountability with her diet to help with weight loss. Also encouraged to get atleast 150 min moderate intensity exercise weekly with at least 2 days of resistance training. Relevant Orders POCT glycosylated hemoglobin (Hb A1C) docked device (Completed) Follow up in about 3 months (around 03/31/2025) for Recheck. Patient's Medications New Prescriptions No medications on file Previous Medications ACETONE, URINE, TEST (KETOSTIX) STRIP if needed for high blood sugar ASPIRIN 81 MG CHEWABLE TABLET 1 (one) time each day at the same time. CONTINUOUS GLUCOSE SENSOR (DEXCOM G6 SENSOR) [facility] SENSOR (SEE ADMINISTRATION INSTRUCTIONS) CONTINUOUS GLUCOSE TRANSMITTER (DEXCOM G6 TRANSMITTER) MISC USE INSTRUCTED EVERY 90 DAYS GLUCAGON (BAQSIMI ONE PACK) 3 MG/DOSE NASAL POWDER Administer 3 mg into affected nostril(s) 1 (one)time if needed for low blood sugar INSULIN ASPART, W/NIACINAMIDE, (FIASP) 100 UNIT/ML SOLUTION INJECT ONE DOSE DIRECTEDSEE ADMINISTRATION INSTURCTIONS PER PUMP MAXIMUM DAILY 150 UNITS INSULIN DISPOSABLE PUMP (OMNIPOD 5 [id number] PODS GEN 5) MISC Inject 1 Device under the skin every other day Pump settings- Basal: 12A 2.0, 10A 1.6, 5P 2.6, ICR: 12A 4, ISF: 35 INSULIN GLARGINE (LANTUS SOLOSTAR) 100 UNIT/ML PEN Inject 50 Units under the skin in the morning. LEVOCETIRIZINE (XYZAL) 5 MG TABLET Take 5 mg by mouth in the evening LEVOTHYROXINE (SYNTHROID, LEVOXYL) 175 MCG TABLET Take 1 tablet by mouth in the morning. Take before meals. 1 tablet in the morning on an empty stomach Orally Once a day. MONTELUKAST (SINGULAIR) 10 MG TABLET Daily as needed MULTIPLE VITAMIN (MULTI VITAMIN DAILY) TABLET 1 (one) time each day at the same time. MULTIPLE VITAMINS-MINERALS (AIRBORNE) CHEWABLE TABLET as directed Orally Modified Medications No medications on file Discontinued Medications MAGNESIUM PO I have reviewed and reconciled the history and medication list with the patient today. documented in this encounterC[facility] [id number] History of Present illness Narrative* Mirtha Cervantes DO - 10/02/2024 8:30 AM ESTAssociated Problem(s): Type 1 diabetes mellitus with hyperglycemia (HCC) ([facility]) During the appointment today all pertinent labs, imaging, health maintenance, and glucose readings were reviewed. Encouraged to check blood glucose throughout the day with some fasting and some PP readings. They are to bring their glucose meter/cgm in to all appointments. All of the patients questions, treatment options, and current care plan and goals were discussed. Acopy of this along with pertinent instructions were given to the patient at the end of the appointment. The patient voices understanding of all of this and is to call in between appointments if they have any problems or questions. Shad Kunz is struggling to gain control of their diabetes. I am very concerned for diabetes related complications. , The patient is wearing their cgm on a daily basis and making decisions in regards to adjusting insulin daily as well for at least the last 60 days , Discussed dietary changes at length. Encouraged to limit simple carbs and focus more on healthy protein/fat with all meals and snacks. They should also avoid any sugary drinks. , Instructed on the importance of taking insulin before eating. If it has been more than 30-45 min since eating they should not give the meal dose butshould just give a correction insulin dose. , Instructions given today include: Pump instructions and Dietary education. Will tighten her carb ratio to try and improve control. She is to make sure she is counting her carbs/portions correctly. She has insulin resistance and I would encourage improving her diet and increasing activity to help with weight loss to improve this. Discussed option of metformin but she didn't tolerate this in the past. I also discussed the option of U-200 insulin in her omnipod as she is going through her pods more than every 2 days. She wants to hold off on that right now. * Mirtha Cervantes DO - 10/01/2024 1:15 PM EST Images from the original note were not included. Shad Kunz is a 64 y.o. female presents with chief complaint of Diabetes HPI: Diabetes Mellitus Follow-up: Shad Kunz is here for follow-up evaluation of diabetes mellitus. The initial diagnosis of Type 1 diabetes was made in 2006 Diabetes complications: none She has been checking her blood glucose with a Omnipod 5 -LINKED IN GLOOKO-and Dexcom G6 CGM on a daily basis. She is spiking with all of her meals. She feels that she is counting her carbs correctly. Admits to missing boluses sometimes but not very often. She feels that she is getting enough protein in with her meals. Last A1c: 8.1 (05/08/24) Last eye exam: 07/01/2024 Current concerns include: Bg levels: maybe a little higher or similar to last visit. She is using more insulin the past few months and is changing her pod every 40- 48 hours. She was sick with a cold on 3 different occasion since her last visit. No abx or steroids were needed Feet feel cold at times and right foot will have pain in her middle toe. Right arm has been itching intensely for the past 2 months. Ice helps to stop the itching. She was told that could be neuropathy Diet: limiting and counting carbs Drinks: water, coffee with half and half, occasional diet coke. Glass of wine on occasion Exercise: walking 5 days a week Hypoglycemia: not often SUBJECTIVE: PROBLEM LIST SOCIAL ALLERGIES: Patient Active Problem List Diagnosis Bloating Menopausal symptom Type 1 diabetes mellitus without complication ([facility]) Class 2 severe obesity due to excess calories with serious comorbidity and body mass index (BMI) of35.0 to 35.9 in adult ([facility]) Type 1 diabetes mellitus with hyperglycemia (HCC) ([facility]) Social History Tobacco Use Smoking status: Never Smokeless tobacco: Never Substance Use Topics Alcohol use: Yes Alcohol/week: 2.0 standard drinks of alcohol Types: 2 Standard drinks or equivalent per week Comment: monthly or less Drug use: Never Allergies Allergen Reactions Dust Mite Extract Latex Sensitive to bandages Molds & Smuts Pollen Extract Synopsis SmartLink 10/01/2024 08/24/2024 00:00 Antidiabetic medications Glucagon 3 mg Once PRN NA (3 MG/DOSE POWD) No sig Insulin Aspart (w/Niacinamide) 1 Dose See admin instructions Per pump (max daily 150 units) IJ (100UNIT/ML SOLN) 1 Dose See admin instructions Per pump (max daily 150 units) IJ (100 UNIT/ML SOLN) Insulin Aspart Per pump (max daily 150 units) (100 UNIT/ML SOLN)-Discontinued (Therapy comp) Per pump (max daily 150 units) (100 UNIT/ML SOLN) Insulin Glargine 50 Units Daily SC 50 Units Daily SC Labs [facility] HEMOGLOBIN A1C/HEMOGLOBIN.TOTAL:MFR:PT:BLD:QN: 8.2 Outpatient prescription Medication marked as long-term Patient-reported The ASCVD Risk score (Fernando DK, et al., 2019) failed to calculate for the following reasons: Cannot find a previous HDL lab Cannot find a previous total cholesterol lab REVIEW OF SYMPTOMS: Review of Systems Constitutional: Negative for appetite change, fatigue and unexpected weight change. Eyes: Negative for visual disturbance. Respiratory: Negative for cough, shortness of breath and wheezing. Cardiovascular: Negative for chest pain, palpitations and leg swelling. Neurological: Negative for numbness. Endocrine: Negative for polydipsia, polyphagia and polyuria. OBJECTIVE: 10/01/2024 1:20 PM 05/08/2024 10:47 AM 03/26/2024 10:18 AM Vitals BMI 34.01 kg/m2 33.48 kg/m2 33.83 kg/m2 Systolic 130 132 124 Diastolic 62 72 82 Heart Rate 91 100 Temp 98.5 F 98.3 F Height (in) 5' 3 5' 3 5' 3 Weight (lb) 192 189 191 Visit Report Report Report Report Physical Exam Constitutional: General: She is not in acute distress. Appearance: Normal appearance. Cardiovascular: Rate and Rhythm: Normal rate and regular rhythm. Heart sounds: No murmur heard. No friction rub. No gallop. Pulmonary: Breath sounds: Normal breath sounds. No wheezing, rhonchi or rales. Musculoskeletal: General: No swelling. Neurological: Mental Status: She is alert. ASSESSMENT AND PLAN: Problem List Items Addressed This Visit Type 1 diabetes mellitus with hyperglycemia (HCC) (CMS/HCC) During the appointment today all pertinent labs, imaging, health maintenance, and glucose readings were reviewed. Encouraged to check blood glucose throughout the day with some fasting and some PP readings. They are to bring their glucose meter/cgm in to all appointments. All of the patients questions, treatment options, and current care plan and goals were discussed. Acopy of this along with pertinent instructions were given to the patient at the end of the appointment. The patient voices understanding of all of this and is to call in between appointments if they have any problems or questions. Shad Kunz is struggling to gain control of their diabetes. I am very concerned for diabetes related complications. , The patient is wearing their cgm on a daily basis and making decisions in regards to adjusting insulin daily as well for at least the last 60 days , Discussed dietary changes at length. Encouraged to limit simple carbs and focus more on healthy protein/fat with all meals and snacks. They should also avoid any sugary drinks. , Instructed on the importance of taking insulin before eating. If it has been more than 30-45 min since eating they should not give the meal dose butshould just give a correction insulin dose. , Instructions given today include: Pump instructions and Dietary education. Will tighten her carb ratio to try and improve control. She is to make sure she is counting her carbs/portions correctly. She has insulin resistance and I would encourage improving her diet and increasing activity to help with weight loss to improve this. Discussed option of metformin but she didn't tolerate this in the past. I also discussed the option of U-200 insulin in her omnipod as she is going through her pods more than every 2 days. She wants to hold off on that right now. Relevant Orders POCT glycosylated hemoglobin (Hb A1C) docked device (Completed) Follow up in about 3 months (around 12/29/2024) for Recheck. Patient's Medications New Prescriptions No medications on file Previous Medications ACETONE, URINE, TEST (KETOSTIX) STRIP if needed for high blood sugar ASPIRIN 81 MG CHEWABLE TABLET 1 (one) time each day at the same time. CONTINUOUS BLOOD GLUC TRANSMIT (DEXCOM G6 TRANSMITTER) MISC Use as instructed every 90 days CONTINUOUS GLUCOSE SENSOR (DEXCOM G6 SENSOR) MISC USE 1 SENSOR (SEE ADMINISTRATION INSTRUCTIONS) GLUCAGON (BAQSIMI ONE PACK) 3 MG/DOSE NASAL POWDER Administer 3 mg into affected nostril(s) 1 (one)time if needed for low blood sugar INSULIN ASPART, W/NIACINAMIDE, (FIASP) 100 UNIT/ML SOLUTION Inject 1 Dose as directed See administration instructions Per pump (max daily 150 units) INSULIN DISPOSABLE PUMP (OMNIPOD 5 G6 PODS, GEN 5,) MISC Inject 1 each under the skin every other day Inject 1 each under the skin every other day. Pump settings- Basal: 12A 2.0, 10A 1.6, 5P 2.6, ICR: 12A 4, ISF: 35 INSULIN GLARGINE (LANTUS SOLOSTAR) 100 UNIT/ML PEN Inject 50 Units under the skin in the morning. LEVOCETIRIZINE (XYZAL) 5 MG TABLET Take 5 mg by mouth in the evening LEVOTHYROXINE (SYNTHROID, LEVOXYL) 175 MCG TABLET Take 1 tablet by mouth in the morning. Take before meals. 1 tablet in the morning on an empty stomach Orally Once a day. MAGNESIUM PO MONTELUKAST (SINGULAIR) 10 MG TABLET Daily as needed MULTIPLE VITAMIN (MULTI VITAMIN DAILY) TABLET 1 (one) time each day at the same time. MULTIPLE VITAMINS-MINERALS (AIRBORNE) CHEWABLE TABLET as directed Orally Modified Medications No medications on file Discontinued Medications INSULIN ASPART (NOVOLOG) 100 UNIT/ML INJECTION Per pump (max daily 150 units) I have reviewed and reconciled the history and medication list with the patient today. documented in this encounterCedar County [facility] [id number] History of Present illness Narrative* Mirtha Cervantes DO - 05/10/2024 10:32 AM EDTAssociated Problem(s): Type 1 diabetes mellitus without complication ([facility]) During the appointment today all pertinent labs, imaging, health maintenance, and glucose readings were reviewed. Encouraged to check blood glucose throughout the day with some fasting and some PP readings. They are to bring their glucose meter/cgm in to all appointments. All of the patients questions, treatment options, and current care plan and goals were discussed. Acopy of this along with pertinent instructions were given to the patient at the end of the appointment. The patient voices understanding of all of this and is to call in between appointments if they have any problems or questions. Shad Kunz control is stable overall. , The patient is wearing their cgm on a daily basis and making decisions in regards to adjusting insulin daily as well for at least the last 60 days , Discussed dietary changes at length. Encouraged to limit simple carbs and focus more on healthy protein/fat with all meals and snacks. They should also avoid any sugary drinks. , Instructed on the importance of taking insulin before eating. If it has been more than 30-45 min since eating they should not give the meal dose but should just give a correction insulin dose. , Instructions given today include: Pump instructions and Dietary education. Will increase basal rate at 12A and 5P. * Mirtha Cervantes DO - 05/08/2024 10:30 AM EDT Images from the original note were not included. Shad Kunz is a 63 y.o. female presents with chief complaint of Diabetes HPI: Diabetes Mellitus Follow-up: Shad Kunz is here for follow-up evaluation of diabetes mellitus. The initial diagnosis of Type 1 diabetes was made in 2006 Diabetes complications: none she has been checking her blood glucose with a Omnipod 5 -LINKED IN GLOOKO-and Dexcom CGM on a daily basis. Running higher in the evening and overnight. Will come down during the day. Last A1c: 8.3 on 12/05/2023 Last eye exam: 05/14/2023- My eye doctor (Yana Ricci) Current concerns include: States her bg levels are a little higher. Daughter got April 11. She was busy with wedding and not paying 100% attention to what she was doing. Cortizone injections in hips January and again in March by ortho Dr David Dodson due to bursitis Diet: limiting and counting carbs Drinks: water, coffee with half and half, occasional diet coke. Glass of wine on occasion Exercise- walking less due to hip pain Hypoglycemia: couple times since her last visit, when she waits to long to eat in between meals SUBJECTIVE: PROBLEM LIST SOCIAL ALLERGIES: Patient Active Problem List Diagnosis Bloating Menopausal symptom Type 1 diabetes mellitus without complication ([facility]) Class 2 severe obesity due to excess calories with serious comorbidity and body mass index (BMI) of35.0 to 35.9 in adult ([facility]) Type 1 diabetes mellitus with hyperglycemia (HCC) ([facility]) Social History Tobacco Use Smoking status: Never Smokeless tobacco: Never Substance Use Topics Alcohol use: Yes Alcohol/week: 2.0 standard drinks of alcohol Types: 2 Standard drinks or equivalent per week Comment: monthly or less Drug use: Defer Allergies Allergen Reactions Dust Mite Extract Other Reaction(s): unknown Latex Other Reaction(s): Unknown Molds & Smuts Other Reaction(s): unknown Pollen Extract Other Reaction(s): unknown Synopsis SmartLink 05/08/2024 10:57 Antidiabetic medications Glucagon as directed for hypoglycemia Nasally for 30 days (3 MG/DOSE POWD) No sig Insulin Aspart (w/Niacinamide) 1 Dose See admin instructions Per pump (max daily 150 units) IJ (100UNIT/ML SOLN) No sig Insulin Glargine 50 Units Daily SC No sig Labs [facility]PT A1C 8.1 Outpatient prescription Medication marked as long-term Patient-reported medication REVIEW OF SYMPTOMS: Review of Systems Constitutional: Positive for fatigue. Negative for appetite change and unexpected weight change. Eyes: Negative for visual disturbance. Respiratory: Negative for cough, shortness of breath and wheezing. Cardiovascular: Negative for chest pain, palpitations and leg swelling. Neurological: Positive for numbness. Endocrine: Negative for polydipsia, polyphagia and polyuria. OBJECTIVE: 05/08/2024 10:47 AM 03/26/2024 10:18 AM 12/05/2023 11:22 AM Vitals BMI 33.48 kg/m2 33.83 kg/m2 34.9 kg/m2 Systolic 132 124 124 Diastolic 72 82 66 Heart Rate 100 90 Temp 98.3 F 98.5 F Height (in) 5' 3 5' 3 5' 3 Weight (lb) 189 191 197 Visit Report Report Report Report Physical Exam Constitutional: General: She is not in acute distress. Appearance: Normal appearance. Cardiovascular: Rate and Rhythm: Normal rate and regular rhythm. Heart sounds: No murmur heard. No friction rub. No gallop. Pulmonary: Breath sounds: Normal breath sounds. No wheezing, rhonchi or rales. Musculoskeletal: General: No swelling. Neurological: Mental Status: She is alert. ASSESSMENT AND PLAN: Problem List Items Addressed This Visit Type 1 diabetes mellitus without complication ([facility]) During the appointment today all pertinent labs, imaging, health maintenance, and glucose readings were reviewed. Encouraged to check blood glucose throughout the day with some fasting and some PP readings. They are to bring their glucose meter/cgm in to all appointments. All of the patients questions, treatment options, and current care plan and goals were discussed. Acopy of this along with pertinent instructions were given to the patient at the end of the appointment. The patient voices understanding of all of this and is to call in between appointments if they have any problems or questions. Shad Kunz control is stable overall. , The patient is wearing their cgm on a daily basis and making decisions in regards to adjusting insulin daily as well for at least the last 60 days , Discussed dietary changes at length. Encouraged to limit simple carbs and focus more on healthy protein/fat with all meals and snacks. They should also avoid any sugary drinks. , Instructed on the importance of taking insulin before eating. If it has been more than 30-45 min since eating they should not give the meal dose but should just give a correction insulin dose. , Instructions given today include: Pump instructions and Dietary education. Will increase basal rate at 12A and 5P. Relevant Medications Insulin Disposable Pump (Omnipod 5 G6 Pods, Gen 5,) misc Other Relevant Orders POCT glycosylated hemoglobin (Hb A1C) docked device (Completed) Type 1 diabetes mellitus with hyperglycemia (HCC) (CMS/[facility]) - Primary Follow up in about 4 months (around 09/07/2024) for Recheck. Patient's Medications New Prescriptions No medications on file Previous Medications ACETONE, URINE, TEST (KETOSTIX) STRIP as directed for hyperglycemia for 30 days ASPIRIN 81 MG CHEWABLE TABLET 1 (one) time each day at the same time. CONTINUOUS BLOOD GLUC SENSOR (DEXCOM G6 SENSOR) MISC 1 each See administration instructions CONTINUOUS BLOOD GLUC TRANSMIT (DEXCOM G6 TRANSMITTER) MISC Use as instructed every 90 days GLUCAGON (BAQSIMI ONE PACK) 3 MG/DOSE NASAL POWDER as directed for hypoglycemia Nasally for 30 days INSULIN ASPART, W/NIACINAMIDE, (FIASP) 100 UNIT/ML SOLUTION Inject 1 Dose as directed See administration instructions Per pump (max daily 150 units) INSULIN GLARGINE (LANTUS SOLOSTAR) 100 UNIT/ML PEN Inject 50 Units under the skin in the morning. LEVOCETIRIZINE (XYZAL) 5 MG TABLET Take 5 mg by mouth in the evening LEVOTHYROXINE (SYNTHROID, LEVOXYL) 175 MCG TABLET Take 1 tablet by mouth in the morning. Take before meals. 1 tablet in the morning on an empty stomach Orally Once a day. MAGNESIUM PO MONTELUKAST (SINGULAIR) 10 MG TABLET Daily as needed MULTIPLE VITAMIN (MULTI VITAMIN DAILY) TABLET 1 (one) time each day at the same time. MULTIPLE VITAMINS-MINERALS (AIRBORNE) CHEWABLE TABLET as directed Orally Modified Medications Modified Medication Previous Medication INSULIN DISPOSABLE PUMP (OMNIPOD 5 G6 PODS, GEN 5,) MISC Insulin Disposable Pump (Omnipod 5 G6 Pods, Gen 5,) misc Inject 1 each under the skin every other day Inject 1 each under the skin every other day. Pump settings- Basal: 12A 2.0, 10A 1.6, 5P 2.6, ICR: 12A 4, ISF: 35 Inject 1 each under the skin every otherday Inject 1 each under the skin every other day. Pump settings- Basal: 12A 1.8, 10A 1.6, 5P 2.2, ICR: 12A 4, ISF: 35 Discontinued Medications FEXOFENADINE (PATSY) 180 MG TABLET 1 (one) time each day at the same time. 1 tablet Swallow wholewith water; do not take with fruit juices. Orally Once a day FEZOLINETANT (VEOZAH) 45 MG TABLET Take 1 tablet by mouth Daily INSULIN DISPOSABLE PUMP (OMNIPOD 5 G6 POD, GEN 5,) MISC 1 Device every other day I have reviewed and reconciled the history and medication list with the patient today. documented in this encounterCedar County Memorial [id number] Evaluation note* Encounter Date Diagnosis Assessment Notes Treatment Notes Treatment Clinical Notes Aug, Hypothyroidism, postop (ICD-10 - E89.0) [facility] Other 11-02-2023 Evaluation note* Encounter Date Diagnosis Assessment Notes Treatment Notes Treatment Clinical Notes Jun, Wellness examination (ICD-10 - Z 00.00) Healthy diet and exercise. Reviewed age-appropriate preventive testing recommended. Jun,Type 1 diabetes mellitus with hyperglycemia (ICD-10 - E10.65)This patient is following a comprehensive diabetic treatment plan. They are checking their feet daily for calluses and nonhealing ulcers. They are being seen for yearly dilated eye examinations. Goals: SBP less than 130, LDL less than 100, FBS less than 140, A1C less than 7%. They are checking their BS daily, will which are reviewed at the office visit. Continue regular routine monitoring of A1C,] Microalbumin, Dilated eye exam and Foot exam Jun,Hypothyroidism, postop (ICD-10 - E89.0) Jun,cute right-sided low back pain without sciatica (ICD-10 - M54.50) The patient is instructed to avoid bending, twisting or lifting. They are to use intermittent heat and ice as needed. They may schedule a massage or gentle manipulation. They may safely use Tylenol as needed. Jun,hronic vasomotor rhinitis (ICD-10 - J30.0)Continue Patsy, begin Flonase Requesting referral Jun,Morbid (severe) obesity due to excess calories (ICD-10 - E66.01)This patient has been instructed on a low-fat, high-fiber diet. They are instructed to reduce calories, portion sizes and snacks. It is recommended that they exercise for 30 minutes, 3-5 times weekly. Jun,ody mass index [BMI] 35.0-35.9, adult (ICD-10 - Z68.35) Jun,Screening for colon cancer (ICD-10 - Z12.11)Completed Cologuard last year per Sign Poster Jun,Screening mammogram, encounter for (ICD-10 - Z12.31)Instructed patient on monthly SBE and yearly mammograms. [facility] Other 03-08-2022 NoteEXAMINATION: XR CHEST 2 V HISTORY: COVID-19 COMPARISON: 12/12/1989 TECHNIQUE: PA and lateral FINDINGS: LUNGS: No significant pulmonary parenchymal abnormalities. VASCULATURE: No increased pulmonary vasculature. PLEURA: No pneumothorax, effusion, or pleural thickening. CARDIAC: No cardiomegaly or cardiac silhouette abnormality. MEDIASTINUM: No visible mass or adenopathy. BONES: No fracture or visible bone lesion. OTHER: Negative. IMPRESSION: No acute disease. Electronically authenticated by: СЕРГЕЙ TAYLOR Date: 2021-10-31 19:34[facility] Future Appointments Appointment Date:06/10/2024 11:30:00 AM Scheduled Provider: Location:FT.MAMMOGRAM Appointment Type:MA Screen (FT) Future Scheduled Tests Radiology* MA Mamm Screen w/CAD if perf and 3D Dann 06/10/24 [facility] Evaluation noteNo InformationNortNazareth Hospital [facility] Other Evaluation note* Diagnosis Onset Date Resolution Status Hypothyroid acuteObesityacuteScreening for colon canceracuteScreening mammogram for breast canceracuteType 1 diabetes mellitus with hyperglycemiaacuteWellness examination [facility] Work Phone: Evaluation note* Diagnosis Type 1 diabetes mellitus with hyperglycemia (HCC) (CMS/HCC)- Primary Type 1 diabetes mellitus without complication (CMS/HCC) Type I (juvenile type) diabetes mellitus without mention of complication, not stated as uncontrolled [facility] Diagnosis Type 1 diabetes mellitus without complication (CMS/HCC) Type I (juvenile type) diabetes mellitus without mention of complication, not stated as uncontrolled Severe obesity (CMS/HCC)- Primary Morbid obesity Type 1 diabetes mellitus without complication (CMS/HCC) Type I (juvenile type) diabetes mellitus without mention of complication, not stated as uncontrolled Class 2 severe obesity due to excess calories with serious comorbidity and body mass index (BMI) of35.0 to 35.9 in adult ([facility])- Primary Type 1 diabetes mellitus without complication ([facility]) Type I (juvenile type) diabetes mellitus without mention of complication, not stated as uncontrolled Type 1 diabetes mellitus without complication ([facility]) Type I (juvenile type) diabetes mellitus without mention of complication, not stated as uncontrolled Type 1 diabetes mellitus with hyperglycemia (HCC) ([facility])- Primary Type 1 diabetes mellitus without complication ([facility]) Type I (juvenile type) diabetes mellitus without mention of complication, not stated as uncontrolled Type 1 diabetes mellitus with hyperglycemia (HCC) ([facility]) documented in this encounter [facility] HealthcareEvaluation noteNo assessment information availableOhiohealth Doctors Hospital Work Phone: Evaluation note* Diagnosis Type 1 diabetes mellitus without complication Type I (juvenile type) diabetes mellitus without mention of complication, not stated as uncontrolled Severe obesity ([facility])- Primary Morbid obesity Type 1 diabetes mellitus without complication Type I (juvenile type) diabetes mellitus without mention of complication, not stated as uncontrolled Class 2 severe obesity due to excess calories with serious comorbidity and body mass index (BMI) of35.0 to 35.9 in adult ([facility])- Primary Type 1 diabetes mellitus without complication Type I (juvenile type) diabetes mellitus without mention of complication, not stated as uncontrolled Type 1 diabetes mellitus without complication Type I (juvenile type) diabetes mellitus without mention of complication, not stated as uncontrolled Type 1 diabetes mellitus with hyperglycemia (HCC) ([facility])- Primary Type 1 diabetes mellitus without complication Type I (juvenile type) diabetes mellitus without mention of complication, not stated as uncontrolled Type 1 diabetes mellitus without complication- Primary Type I (juvenile type) diabetes mellitus without mention of complication, not stated as uncontrolled documented in this encounter [facility] HealthcareEvaluation note* Diagnosis Onset Date Resolution Status Admit Date Type 1 diabetes mellitus with hyperglyce rashel acuteAugust 2024 11:56amCOVIDnoneactiveAugust 2024 11:56am [facility] Work Phone: Evaluation note* Diagnosis Type 1 diabetes mellitus without complication (HCC) Type I (juvenile type) diabetes mellitus without mention of complication, not stated as uncontrolled Severe obesity ([facility])- Primary Morbid obesity Type 1 diabetes mellitus without complication (HCC) Type I (juvenile type) diabetes mellitus without mention of complication, not stated as uncontrolled Class 2 severe obesity due to excess calories with serious comorbidity and body mass index (BMI) of35.0 to 35.9 in adult ([facility])- Primary Type 1 diabetes mellitus without complication (HCC) Type I (juvenile type) diabetes mellitus without mention of complication, not stated as uncontrolled Type 1 diabetes mellitus without complication (HCC) Type I (juvenile type) diabetes mellitus without mention of complication, not stated as uncontrolled Type 1 diabetes mellitus with hyperglycemia (HCC)- Primary Type 1 diabetes mellitus without complication (HCC) Type I (juvenile type) diabetes mellitus without mention of complication, not stated as uncontrolled Type 1 diabetes mellitus without complication (HCC)- Primary Type I (juvenile type) diabetes mellitus without mention of complication, not stated as uncontrolled Encounter for gynecological examination (general) (routine) with abnormal findings- Primary Menopausal hot flushes Symptomatic menopausal or female climacteric states Cystocele, male Screening for malignant neoplasm of cervix Screening for malignant neoplasm of the cervix Encounter for screening for human papillomavirus (HPV) Other screening mammogram documented in this encounter [facility] HealthcareEvaluation note* Diagnosis Type 1 diabetes mellitus without complication (HCC) Type I (juvenile type) diabetes mellitus without mention of complication, not stated as uncontrolled Severe obesity ([facility])- Primary Morbid obesity Type 1 diabetes mellitus without complication (HCC) Type I (juvenile type) diabetes mellitus without mention of complication, not stated as uncontrolled Class 2 severe obesity due to excess calories with serious comorbidity and body mass index (BMI) of35.0 to 35.9 in adult ([facility])- Primary Type 1 diabetes mellitus without complication (HCC) Type I (juvenile type) diabetes mellitus without mention of complication, not stated as uncontrolled Type 1 diabetes mellitus without complication (HCC) Type I (juvenile type) diabetes mellitus without mention of complication, not stated as uncontrolled Type 1 diabetes mellitus with hyperglycemia (HCC)- Primary Type 1 diabetes mellitus without complication (HCC) Type I (juvenile type) diabetes mellitus without mention of complication, not stated as uncontrolled Type 1 diabetes mellitus without complication (HCC)- Primary Type I (juvenile type) diabetes mellitus without mention of complication, not stated as uncontrolled Onychomycosis- Primary Dermatophytosis of nail Type 1 diabetes mellitus without complication (HCC) Type I (juvenile type) diabetes mellitus without mention of complication, not stated as uncontrolled [facility]* Diagnosis Type 1 diabetes mellitus without complication (HCC) Type I (juvenile type) diabetes mellitus without mention of complication, not stated as uncontrolled Severe obesity ([facility])- Primary Morbid obesity Type 1 diabetes mellitus without complication (HCC) Type I (juvenile type) diabetes mellitus without mention of complication, not stated as uncontrolled Class 2 severe obesity due to excess calories with serious comorbidity and body mass index (BMI) of35.0 to 35.9 in adult- Primary Type 1 diabetes mellitus without complication (HCC) Type I (juvenile type) diabetes mellitus without mention of complication, not stated as uncontrolled Type 1 diabetes mellitus without complication (HCC) Type I (juvenile type) diabetes mellitus without mention of complication, not stated as uncontrolled Type 1 diabetes mellitus with hyperglycemia (HCC)- Primary Type 1 diabetes mellitus without complication (HCC) Type I (juvenile type) diabetes mellitus without mention of complication, not stated as uncontrolled Type 1 diabetes mellitus without complication (HCC)- Primary Type I (juvenile type) diabetes mellitus without mention of complication, not stated as uncontrolled Onychomycosis- Primary Dermatophytosis of nail Type 1 diabetes mellitus without complication (HCC) Type I (juvenile type) diabetes mellitus without mention of complication, not stated as uncontrolled Type 1 diabetes mellitus without complications (HCC)- Primary documented in this encounter [facility] HealthcareHistory general Narrative - Reported* Type Description Date Medical History Lichen planus Medical HistoryHyperglycemia due to type 1 diabetes mellitusMedical HistoryCough Medical HistoryGastro-esophageal refluxMedical HistoryH/O Graves' diseaseMedical HistoryEpigastric abdominal painMedical HistoryHypothyroidism, postopMedical HistoryHyperlipidemia type IISurgical Eliywirnsgiptlcmyhpc0117Zoxlamek History [id number] Historysee above [facility] Other Hospital course Narrative No data available for this section [facility] Hospital Discharge instructions No data available for this section [facility] Progress note No data available for this section [facility] Reason for referral (narrative)* Reason Referral for chronic rhinitis Diagnosis 1 Chronic vasomotor rh initis (J30.0) Referral Organization [facility] heather Referring Provider First Name Evelio Referring Provider Last Name Farhat Referring Provider Specialty Internal Me dicine Referred Organization [facility] Referred Provider Tammie Selby Referred Address ,[place], [place],[address] Referred Provider Specialty Ear, Nose an d Throat Referral Priority Routine General Notes Mrs. Kunz has exper ienced chronic rhinitis with some worsening during spring and fall. She has used Patsy daily without improvement. She denies facial pressure or purulent d/c. She was instructed to start Flonase and will be referred to ENT for examination and treatment. [facility] Other Reason for referral (narrative)No reason for referral information availableOhiohealth Doctors Hospital Work Phone: Summary Purpose Family History No Family History Records FoundNo Family History Records Found No data available for this section No Family History Records FoundNo Family History Records FoundNo Family History Records FoundNo Family History Records Found No data available for this section No Family History Records FoundNo Family History Records FoundNo Family History Records Found Advance Directives No Advanced Directives Records Found Advance Directive Response Recorded Date/ Time Advance Directives No April 1:39pm Advance Directive Response Recorded Date/ Time Advance Directives No April 2:39pm Chief Complaint and Reason for Visit Chief Complaint CC Adult Risk Strati fication WellnessReason for VisitHypothyroid Obesity Screening for colon cancer Screening mammogram for breast cancer Type 1 diabetes mellitus with hyperglycemia Wellness examination Chief Complaint Admit Date URI November 02, 2024 11: 16am Chief Complaint Admit Date Virtual Covid Pos March 29, 2025 11: 56am Reason for Visit Admit Date Type 1 diabetes mellitus with hyperglyce rashel March 29, 2025 11:56am COVID March 29, 2025 11: 56am Additional Source Comments INFORMATION SOURCE (unrecogn ized section and content) DATE CREATED AUTHOR 10/06/2018 [facility] DATE CREATED AUTHOR AUTHOR'S ORGANIZ ATION 07/28/2022 [facility] DATE CREATED AUTHOR AUTHOR'S ORGANIZ ATION 03/28/2024 [facility] DATE CREATED AUTHOR AUTHOR'S ORGANIZ ATION 03/29/2024 [facility] DATE CREATED AUTHOR AUTHOR'S ORGANIZ ATION 06/18/2024 [facility] DATE CREATED AUTHOR AUTHOR'S ORGANIZ ATION 05/18/2025 [facility] DATE CREATED AUTHOR AUTHOR'S ORGANIZ ATION 07/08/2025 [facility] REASON FOR VISIT (unrecogniz ed section and content) ReasonCommentsDiabetesReasonCommentsGynecologic ExamPatient here for a yearly. Denies problems. Mammogram order sent. Request yearly paps d/t hx of HPV.Reason CommentsDiabetes Patient Care team informatio n (unrecognized section and content) Team Status: Active Member Role Status Dates Evelio Dougherty DO Primary Care Provider Active Team Status: Inactive Member Role Status Dates Evelio Dougherty DO Primary Care Provide r, Attending Provider Active Start: November 02, 2024 End: November 02, 2024 Team Status: Active Member Role Status Dates Evelio Dougherty DO Primary Care Provide r, Attending Provider Active Start: June 26, 2024 Team Status: Inactive Member Role Status Dates Evelio Dougherty DO Primary Care Provide r, Attending Provider Active Start: June 30, 2024 End: June 30, 2024Team MemberRelationshipSpecialtyStart DateEnd Date Evelio Dougherty MD [address] [phone] PCP - GeneralInternal Medicine03/14/23Team MemberRelationshipSpecialtyStart Date End Date Evelio Doguherty MD [address] [place] [phone] PCP - GeneralInternal Medicine03/14/23Team MemberRelationshipSpecialtyStart Date End Date Evelio Dougherty DO [address] [place] [phone] PCP - GeneralInternal Medicine03/14/23 Team Status: Inactive Member Role Status Dates Evelio Dougherty DO Primary Care Provider Active Start: March 29, 2025 End: March 29enjaevan Dougherty DOAttending ProviderActiveStart: March 29, 2025 End: March 29, 2025Team MemberRelationshipSpecialtyStart DateEnd Date Evelio Dougherty DO [address] [place] [facility] [place] [phone] PCP - GeneralInternal [facility]03/14/23Te MemberRelationshipSpecialtyStart Date End Date Evelio Dougherty DO [address] [place] [facility] [place] [address] PCP - [facility]03/14/23Te MemberRelationshipSpecialtyStart Date End Date Evelio Dougherty DO [address] [place] [facility] [place] [address] PCP - [facility]03/14/23Te MemberRelationshipSpecialtyStart Date End Date Evelio Dougherty DO [address] [place] [facility] [place] [address] [facility] - [facility]/14/23Te MemberRelationshipSpecialtyStart Date End Date Evelio Dougherty DO [address] [facility] [place] [phone] [facility] - [facility]03/14/23 Goals (unrecognized section and content) Goals may be documented in a n alternate section FOR RECORDS PERTAINING TO PATIENTS WHO ARE OR HAVE BEEN ENROLLED IN A CHEMICAL DEPENDENCY/SUBSTANCEABUSE PROGRAM, SOME INFORMATION MAY BE OMITTED. This clinical summary was aggregated from multiple sources. Caution should be exercised in using it in the provision of clinical care. This summary normalizes information from multiple sources, and as a consequence, information in this document may materially change the coding, format and clinical context of patient data. In addition, data may be omitted in some cases. CLINICAL DECISIONS SHOULD BE BASED ON THE PRIMARY CLINICAL RECORDS. [facility] [employer] [facility]. provides no warranty or guarantee of the accuracy or completeness of information in this document.
--- OUTSIDE RECORDS SUMMARY | 2025-07-23 12:13 | XMS_ITS | Encounter Summary ---
Author Organization [facility] Address [address] [place] [address] Care Team Providers Care Fitness Professional Name Role Phone Farhat Evelio Hatch DO Primary Care Provider [phone] Reason for Visit * ReasonCommentsMed Refill Encounter Details DateTypeDepartmentCare Team (Latest Contact Info)Kjefrbhyszs84/28/2025Refill [facility] [address] [place] [address] Mirtha Rico DO [address] [place] [address] Type 1 diabetes mellitus without complications (HCC) Social History Tobacco UseTypesPacks/DayYears UsedDateSmoking Tobacco: NeverSmokeless Tobacco: NeverAlcohol UseStandard Drinks/WeekCommentsYes2 (1 standard drink = 0.6 oz pure alcohol)monthly or lessHumiliation, Afraid, Rape, and Kick questionnaireAnswer Date RecordedWithin the last year, have you been afraid of your partner or ex-partner?No06/11/2023Within the last year, have you been humiliated or emotionally abused in other ways by your partner or ex-partner?No06/11/2023 Within the last year, have you been kicked, hit, slapped, or otherwise physically hurt by your partner or ex-partner?No06/11/2023Within the last year, have you been raped or forced to have any kind of sexual activity by your part ner or ex-partner?No06/11/2023Social Connection and Isolation PanelAnswerDate RecordedIn a typical week, how many times do you talk on the phone with family, friends, or neighbors?More than three times a week06/11/2023How often do you get together with friends or relatives?More than three times a week06/11/2023How often do you attend rastafarian or uatsdin services?More than 4 times per year 06/11/2023o you belong to any clubs or organizations such as rastafarian groups, unions, fraRefleXion Medical or athletic groups, or school groups?Patient declined 06/11/2023How often do you attend meetings of the clubs or organizations you belong to?Patient jgemzvpg94/17/2023re you , , , , never , or living with a partner?Aoepdyr7406/11/2023UDIT-C AnswerDate RecordedQ1: How often do you have a drink containing alcohol?Monthly or less05/17/2025Q2: How many drinks containing alcohol do you have on a typical day when you are drinking?1 or Q3: How often do you have six or more drinks on one occasion?Never05/17/2025Overall Financial Resource Strain (CARDIA) AnswerDate RecordedHow hard is it for you to pay for the very basics like food, housing, medical care, and heating?Patient xneglbca28/17/2023HQ-2AnswerDate RecordedPatient Health Questionnaire-2 [facility]xpmu745[facility] [place] of Occupational Health - Occupational Stress QuestionnaireAnswerDate RecordedDo you feel stress - tense, restless, nervous, or anxious, or unable to sleep at night because yourmind is troubled all the time - these days?Only a ghkzqd5506/11/2023 Exercise Vital SignAnswerDate RecordedOn average, how many days per week do you engage in moderate to strenuous exercise (like a brisk walk)?5 days06/11/2023On average, how many minutes do you engage in exercise at this level?30 min 06/11/2023Hunger Vital SignAnswerDate RecordedWithin the past 12 months, you worried that your food would run out before you got the money to buymore.Patient czaiauaw89/17/2023Within the past 12 months, the food you bought just didn't last and you didn't have money to get more.Patient /17/2023RAPARE - TransportationAnswerDate RecordedIn the past 12 months, has lack of transportation kept you from medical appointments or from getting medications? Patient dswdeqpd45/17/2023In the past 12 months, has lack of transportation kept you from meetings, work, or from getting things needed for daily living?Patient upiahkzp24/17/2023Housing Stability Vital SignAnswerDate RecordedIn the last 12 months, was there a time when you were not able to pay the mortgage or rent on time?Patient ylvwtet0306/11/2023Number of Places Lived in the Last YearNot on file 06/11/2023In the last 12 months, was there a time when you did not have a steady place to sleep or slept in ashelter (including now)?Patient maklqhy5206/11/2023 CommentsNoSex and Gender InformationValueDate RecordedSex Assigned at BirthNot on fileLegal TalJidzuj68/15/2023 7:40 PM EDTGender IdentityNot on file Sexual OrientationNot on filedocumented as of this encounter Plan of Treatment DateTypeDepartmentCare Team (Latest Contact Info)Ivqetoapaxl47/12/2026 11:15 AM ESTOffice Visit [facility] [address] [place] [phone] Mirtha Rico DO [address] [place] [address] 04/21/2026 9:45 AM EDTOffice Visit [facility] [place] [address] [address] Ifrah Rodriguez DO [address] [address] documented as of this encounter Visit Diagnoses Diagnosis Type 1 diabetes mellitus without complications (HCC) documented in this encounter Care Teams Team MemberRelationshipSpecialtyStart DateEnd Date Evelio Dougherty DO [address] [place] [phone] PCP - GeneralInternal Medicine03/14/23documented as of this encounter
--- OUTSIDE RECORDS SUMMARY | 2025-07-23 12:13 | XMS_ITS | Clinical Summary ---
Author Organization [facility] Address [address] [place] [address] Care Team Providers Care Rubber Insulator Name Role Phone Evelio Dougherty DO Primary Care Provider [phone] Allergies Active AllergyReactionsCriticalityNoted DateCommentsDust Mite Hbfgfus6101/10/2023 Latex01/10/2023 Sensitive to bandages Molds & Smuts01/10/2023ollen Wdhccge0001/10/2023 Medications MedicationSigDispense QuantityRefillsLast FilledStart DateEnd DateStatus ASPIRIN 81 MG chewable tablet 1 (one) time each day at the same time.Active acetone, urine, test (Ketostix) strip if needed for high blood sugar09/22/2021ctive glucagon (Baqsimi One Pack) 3 MG/DOSE nasal powder Administer 3 mg into affected nostril(s) 1 (one) time if needed for low blood sugar09/22/2021ctive levothyroxine (Synthroid, Levoxyl) 175 MCG tablet Take 1 tablet by mouth in the morning. Take before meals. 1 tablet in the morning on an empty stomach Orally Once a day.Active montelukast (Singulair) 10 MG tablet Daily as neededActive Multiple Vitamin (Multi Vitamin Daily) tablet 1 (one) time each day at the same time.Active Multiple Vitamins-Minerals (Airborne) chewable tablet as directed OrallyActive insulin glargine (Lantus SoloStar) 100 UNIT/ML pen Indications:Type 1 diabetes mellitus without complication (HCC)Inject 50 Units under the skin in the morning. 15 mL ctive levocetirizine (Xyzal) 5 MG tablet Take 5 mg by mouth in the eveningActive Continuous Glucose Transmitter (Dexcom G6 transmitter) [facility] [place] Indications:Type 1 diabetes mellitus without complication (HCC)USE INSTRUCTED EVERY 90 DAYS 1 each 5Active Insulin Disposable Pump (Omnipod 5 GeeN3T5 Pods Gen 5) [facility] [place] Indications:Type 1 diabetes mellitus without complication (HCC)Inject 1 Device under the skin every other day Pump settings- Basal: 12A 2.0, 10A 1.6, 5P 2.6, ICR:12A 4, ISF: 35 45 each 304/504/6Active Continuous Glucose Sensor (Dexcom G6 Sensor) [facility] [place] Indications:Type 1 diabetes mellitus without complication (HCC)USE 1 SENSOR (SEE ADMINISTRATION INSTRUCTIONS) 9 each 5Active Fiasp 100 UNIT/ML solution Indications:Type 1 diabetes mellitus without complication (HCC)INJECT ONE DOSE DIRECTED SEE ADMINISTRATIONINSTRUCTIONS PER PUMP MAXIMUM DAILY 150UNITS 140 mL 5Active terbinafine (LamISIL) 250 MG tablet Indications:OnychomycosisTake 1 tablet (250 mg) by mouth Daily 90 tablet /5Active Active Problems ProblemNoted DateDiagnosed DateClass 2 severe obesity due to excess calories with serious comorbidity and body mass index (BMI) of35.0 to 35.9 in adult 06/11/20235779Ingqtnzr03/18/2023Menopausal ezkkflb7301/10/2023Type 1 diabetes mellitus without upboqljnawodv43/18/2023 Assessment & Plan (05/18/2025 8:12 AM EDT): During the appointment today all pertinent labs, [...] if they have any problems or questions. Siobhan Kunz control is stable overall. , Will [...] instead. Will stay with current pump settings. Assessment & Plan (12/29/2024 12:38 PM EDT): During the appointment today all pertinent labs, [...] if they have any problems or questions. Siobhan Kunz control is stable overall. , Will [...] at least 2 days of resistance training. Assessment & Plan (05/10/2024 10:32 AM EDT): During the appointment today all pertinent labs, [...] if they have any problems or questions. Siobhan Kunz control is stable overall. , The [...] increase basal rate at 12A and 5P. Assessment & Plan (12/08/2023 12:50 PM EDT): During the appointment today all pertinent labs, [...] if they have any problems or questions. Siobhan Kunz is struggling to gain control of [...] include: Pump instructions and Dietary education. Will change to fiasp (ok with this since omnipod and no tubing in pump) to seeif this works better for her and helps with early PP spikes. If not helping will tighten carb ratio. Assessment & Plan (09/05/2023 12:27 PM EST): During the appointment today all pertinent labs, [...] if they have any problems or questions. Siobhan Kunz control is stable overall. , The [...] insulin dose. , Instructions given today include: Hypoglycemia management, Pump instructions, and Dietary education. Increase basal rate at 5P and decrease at 10A. Tighten carb ratio during the day. Assessment & Plan (06/11/2023 5:12 PM EDT): During the appointment today all pertinent labs, [...] if they have any problems or questions. Siobhan Kunz control is stable overall. , The [...] any sugary drinks. , Instructions given today in clude: Pump instructions and Dietary education. Will increase basal rate at 8 am to try and improvecontrol. Assessment & Plan (03/14/2023 7:51 PM EDT): During the appointment today all pertinent labs, [...] if they have any problems or questions. Siobhan Kunz continues to struggle to gain control of their diabetes. I am very concerned for diabetes related complications. , The patient is wearing their cgm on a daily basis and making decisions in regards to adjusting insulin daily as well for at least the last 60 days. Increase basal ratesand tighten carb ratio for dinner. Resolved Problems ProblemNoted DateDiagnosed DateResolved DateType 1 diabetes mellitus with zzblxwlcfiyiy17/15/202405/01/2025 Assessment & Plan (10/02/2024 8:30 AM EST): During the appointment today all pertinent labs, [...] if they have any problems or questions. Siobhan Kunz is struggling to gain control of [...] to hold off on that right now. Encounters DateTypeDepartmentCare VazjQuwwheseawo34/28/2025Refill [facility] [address] [place] [phone] Mirtha Rico, DO Type 1 diabetes mellitus without complications (HCC)07/07/2025Results Follow-Up [facility] [address] [place] [phone] Mirtha Rico, DO Comprehensive metabolic panel06/30/2025Telephone [facility] [address] [place] [phone] Mirtha Rico, 05/19/2025Telephone [facility] [address] [place] [phone] Lynette Barry LPN Lamisil denial- use bgdxap6505/17/2025 2:45 PM EDTOffice Visit [facility] [address] [place] [phone] Mirtha Rico, Onychomycosis (Primary Dx); Type 1 diabetes mellitus without complication (HCC)05/17/2025amboo flowsheet [facility] [address] [place] [phone] Mirtha Rico, DO 05/17/20252099Bzwwfp50/15/2025Refill [facility] [address] [place] [address] Mirtha Rico, DO Type 1 diabetes mellitus without complication (HCC)05/03/2025Refill [facility] [address] [place] [address] Mirtha Rico, DO Type 1 diabetes mellitus without complication (HCC)from Last 3 Months Immunizations ImmunizationAdministration DatesNext UkxHII9505/05/2021Influenza, Unspecified 05/30/2009Influenza, injectable, MDCK, preservative free, upsufhznsjrm65/22/2020 Influenza, injectable, quadrivalent, preservative free06/04/2023,05/30/2021, 05/25/2019,05/22/2017,06/05/2016Influenza, seasonal, xovrirkrvl15/14/2013 Influenza, seasonal, injectable, preservative free06/30/2024,06/06/2022, 06/07/2014Zoster, Jsfyfqmembo85/12/2022Zoster, live06/05/2016 Family History Medical HistoryRelationNameCommentsNo Known ProblemsBrotherNo Known Problems DaughterNo Known ProblemsFatherDementiaMotherHypertensionMotherGraves' disease Paternal GrandmotherDiabetesSisterNo Known ProblemsSonMelanomaNeg HxPsoriasisNeg QxQdvckwirVhxcRmceuzRjwgbxhgAhnbassJvlss8PpqzfefaJtugg3 daughterFatherAlive MotherAlivePaternal ErdgdeyyvyyKdflwwMhrmi8WejCcqsr Social History Tobacco UseTypesPacks/DayYears UsedDateSmoking Tobacco: NeverSmokeless Tobacco: Never Tobacco Cessation:Counseling Given: Not Answered Alcohol UseStandard Drinks/WeekCommentsYes2 (1 standard drink = 0.6 [...] times a week06/11/2023How often do you attend roman catholic or religion services?More than 4 times per year 06/11/2023o you belong to any clubs or organizations such as roman catholic groups, unions, fraternal or athletic groups, or school groups?Patient declined 06/11/2023How often do you attend meetings of the clubs or organizations you belong to?Patient husoqqtm75/17/2023re you , , , , never , or living with a partner?Ddertgv1306/11/2023UDIT-C AnswerDate RecordedQ1: How often do you have [...] like food, housing, medical care, and heating?Patient jpyurnfj95/17/2023HQ-2AnswerDate RecordedPatient Health Questionnaire-2 Ndrqz273[facility] [place] of Occup[facility] Health - Occupational Stress QuestionnaireAnswerDate RecordedDo you feel stress - tense, restless, nervous, or anxious, or unable to sleep at night because yourmind is troubled all the time - these days?Only a cztaeu1406/11/2023 Exercise Vital SignAnswerDate RecordedOn average, how many days per week do you engage in moderate to strenuous exercise (like a brisk walk)?5 days06/11/2023On average, how many minutes do you engage in exercise at this level?30 min 06/11/2023Hunger Vital SignAnswerDate RecordedWithin the past 12 months, you worried that your food would run out before you got the money to buymore.Patient wwmfsury75/17/2023Within the past 12 months, the food you bought just didn't last and you didn't have money to get more.Patient rttkbfog41/17/2023RAPARE - TransportationAnswerDate RecordedIn the past 12 months, has lack of transportation kept you from medical appointments or from getting medications? Patient zwjujhht22/17/2023In the past 12 months, has lack of transportation kept you from meetings, work, or from getting things needed for daily living?Patient rhnpegjc16/17/2023Housing Stability Vital SignAnswerDate RecordedIn the last 12 months, was there a time when you were not able to pay the mortgage or rent on time?Patient mslwekt5606/11/2023Number of Places Lived in the Last YearNot on file 06/11/2023In the last 12 months, was there a time when you did not have a steady place to sleep or slept in [facility] (including now)?Patient rdvggif3306/11/2023 CommentsNoSex and Gender InformationValueDate RecordedSex Assigned at BirthNot on fileLegal FehSjehmn37/15/2023 7:40 PM EDTGender IdentityNot on file Sexual OrientationNot on file Last Filed Vital Signs Vital SignReadingTime TakenCommentsBlood Ctgnwqmk906/7209 2:52 PM EDT Oajtj7049 2:52 PM OKYHsahnfvgtwu47.7 ??C (98 ??F)05/17/2025 2:52 PM EDT Respiratory Rate--Oxygen Jrqluzgfol97%05/17/2025 2:52 PM EDTInhaled Oxygen Concentration--Vgckij45.5 kg (193 lb)05/17/2025 2:52 PM DDXEnnycp617 cm (5' 3 ) 05/17/2025 2:52 PM EDTBody Mass Index34.1909 2:52 PM EDT Plan of Treatment DateTypeDepartmentCare Team (Latest Contact Info)Knjilwrwiba89/12/2026 11:15 AM ESTOffice Visit [facility] [address] [place] [address] Mirtha Rico, DO [address] [place] [address] 04/21/2026 9:45 AM EDTOffice Visit [facility] [address] [address] Ifrah Rodriguez, DO [address] [address] Health MaintenanceDue DateLast DoneCommentsCT Cubfudamebdv02/22/1963Colonoscopy 1962FIT1962FOBT1962 4552Woexsggcbkcrk05/22/1963COVID-19 Vaccine ( season)/, 04/05/2022, 08/30/2021, Additional history existsInfluenza Vaccine (#1)/12/2023, 06/04/2023, 06/06/2022, Additional history kqfyarRwtidctow91/16/202510/, 04/13/2020 Colorectal Cancer Qjxozewzp06/10/2026FIT-DNA610/05/2023, 02/05/2019Pap Smear8/4Cervical Cancer Oymsejduk26/25/2030HPV/Fjetfw6104/19/2030 04/19/2025, 03/11/2023, 01/15/2019Pneumococcal Vaccine: Pediatrics (0 to 5 Years) and At-Risk Patients (6 to 64 Years)Aged OutNo longer eligible based on patient's age to complete this topic Procedures Procedure NamePriorityDate/TimeAssociated DiagnosisCommentsCOMPREHENSIVE METABOLIC DAAFFRkighnw34/11/2025 3:05 PM EST Type 1 diabetes mellitus without complications (HCC) POCT GLYCOSYLATED HEMOGLOBIN (HGB A1C)Xhlfenb9305/17/2025 3:01 PM EDT Type 1 diabetes mellitus without complication (HCC) IGP, APT HPV,RFX 16/18,69Zkwdcxs13/25/2025 12:00 AM EDT Screening for malignant neoplasm of cervix Encounter for screening for human papillomavirus (HPV) MA MAMM SCREEN W/CAD IF PERF AND 3D BIL06/10/2024 11:25 AM EDT THINPREP TIS PAP AND HPV MRNA E6/E7 WITH REFLEX TO HPV 16,18/28Gihujmt70/01/2024 12:00 AM EDT Encounter for gynecological examination without abnormal finding LAB COLOGUARD?? COLON CANCER EMIBWALlceqyk65/10/2023 9:20 AM EDT Colon cancer screening from Last 3 Months or Most Recently Relevant to Health Maintenance Results * (ABNORMAL) Comprehensive metabolic panel (07/06/2025 3:05 PM EST)Component ValueRef RangeTest MethodAnalysis TimePerformed AtPathologist SignatureGlucose 165(H)65 - 99 mg/dLQUESTComment: ? Fasting reference interval For someone without known diabetes, a glucose value >125 mg/dL indicates that they may have diabetes and this should be confirmed with a follow-up test. BGQ538 - 25 mg/dLQUESTCreatinine0.660.50 - 1.05 mg/tAOCATDWKGI98> OR = 60 mL/min/1.26p2OLAGOSVL/CREATININE RATIOSEE NOTE:6 - (calc)QUESTComment: ?? Not Reported: BUN and Creatinine are within ?? reference range. ? Zlxfrc845564 - 146 mmol/LQUESTPotassium, Bld4.23.5 - 5.3 mmol/OCJOTYGhvoxrfk409 98 - 110 mmol/LQUESTCarbon Vvnyhyf8492 - 32 mmol/LQUESTCalcium8.78.6 - 10.4 mg/dLQUESTPROTEIN, TOTAL6.66.1 - 8.1 g/dLQUESTALBUMIN4.03.6 - 5.1 g/dLQUEST GLOBULIN2.61.9 - 3.7 g/dL (calc)QUESTALBUMIN/GLOBULIN RATIO1.51.0 - 2.5 (calc) QUESTBILIRUBIN, TOTAL0.30.2 - 1.2 mg/dLQUESTALKALINE FFIDTDIOFYH4667 - 153 U/L FSRLCKYL3402 - 35 U/CSVFGMQOG627 - 29 U/LQUESTSpecimen (Source)Anatomical Location / LateralityCollection Method / VolumeCollection TimeReceived TimeBlood Venous blood specimen / Ctqxzat5407/06/2025 3:05 PM EST07/06/2025 3:06 PM EST Narrative Resulting Agency Comment Performing Organization Information ?Site ID: [id number] ?Name: [facility] ?Address: [address] [place] [phone] ?Director: Isac Mead MD Authorizing ProviderResult TypeResult StatusMirtha Rico DOLAB BLOOD ORDERABLESFinal ResultPerforming OrganizationAddressCity/State/ZIP CodePhone Number [facility] * POCT glycosylated hemoglobin (Hb A1C) docked device (05/17/2025 3:01 PM EDT) ComponentValueRef RangeTest MethodAnalysis TimePerformed AtPathologist SignatureHemoglobin A1C7.5Specimen (Source)Anatomical Location / Laterality Collection Method / VolumeCollection TimeReceived TimeBloodVenous blood specimen / Vucasxx8105/17/2025 3:01 PM EDT Narrative Authorizing ProviderResult TypeResult StatusMirtha Rico DOPOINT OF CARE TEST ENTER/EDIT ORDERABLESFinal Result * IGP, APT HPV,RFX 16/18,45 (04/19/2025 12:00 AM EDT)ComponentValueRef RangeTest MethodAnalysis TimePerformed AtPathologist SignatureDiagnosis:CommentLABCORP Comment:NEGATIVE FOR INTRAEPITHELIAL LESION OR MALIGNANCY.Specimen Adequacy: CommentLABCORPComment: Satisfactory for evaluation. ??Endocervical and/or squamous metaplastic cells (endocervical component) are present. Clinician Provided ICD10:CommentLABCORPComment: Z12.4 Z11.51 Performed By:CommentLABCORPComment:Merly Louise, Manager Financial Systems ([facility])Cyto Comments.LABCORPNote:CommentLABCORPComment: The Pap smear is a screening test designed to aid in the detection of premalignant and malignant conditions of the uterine cervix. ??It is not a diagnostic procedure and should not be used as the sole means of detecting cervical cancer. ??Both false-positive and false-negative reports do occur. Test Methodology:CommentLABCORPComment: This liquid based ThinPrep(R) pap test was screened with the use of an image guided system. HPV AptimaNegativeNegativeLABCORPComment: This nucleic acid amplification test detects fourteen high-risk HPV types (16,18,31,33,35,39,45,51,52,56,58,59,66,68) without differentiation. Specimen (Source)Anatomical Location / LateralityCollection Method / Volume Collection TimeReceived TimeVaginal Fluid/ Narrative [facility] - 04/22/2025 4:35 PM EDT Performed at: 01 - [facility] [id number] [place] [address] ??[id number] Senior Database Programmer: Paul Mancuso MD, Phone: ??[phone] Performed at: ??02 - Lab[address] ??[id number] Senior Database Programmer: Valentine Snow MD, Phone: ??[phone] Performed at: ??03 - [address] ??[id number] Senior Database Programmer: Valentine Snow MD, Phone: ??[phone] Specimen Comment: No. of containers..01 ThinPrep Vial Authorizing ProviderResult TypeResult StatusMona J Nataprawira DOLAB BLOOD ORDERABLESFinal ResultPerforming OrganizationAddressCity/State/ZIP CodePhone Number [facility] * MA MAMM SCREEN W/CAD IF PERF AND 3D DANN (06/10/2024 11:25 AM EDT)Anatomical RegionLateralityModalityOtherSpecimen (Source)Anatomical Location / Laterality Collection Method / VolumeCollection TimeReceived Time06/10/2024 11:25 AM EDT Narrative 06/13/2024 8:24 AM EDT Exam Date/Time: 06/10/2024 11:41 EDT Reason for Exam: Z12.31 Report IMPRESSION: ??BIRADS 2 BENIGN FINDINGS, NORMAL INTERVAL FOLLOW-UP Follow-up: 12 ??MONTH RECALL Density: Category C - Heterogeneously dense. ?? Vascular calcifications: Absent. EXAM: MA Mamm Screen [...] used in the interpretation. Board Certified Radiologists. ??Accredited by the ACR and FDA. MAMMOGRAPHY IS VERY IMPORTANT TO YOUR HEALTH. THE CURRENT [employer] OF RADIOLOGY AND NATIONAL COMPREHENSIVE CANCER NETWORK GUIDELINES RECOMMENDS ANNUAL MAMMOGRAPHY BEGINNING AT AGE 40. THIS FACILITY UTILIZES A REMINDER SYSTEM TO ENSURE ALL PATIENTS RECEIVE REMINDER NOTIFICATIONS AT THE APPROPRIATE TIME BASED ON THE RECOMMENDATIONS OF THIS EXAM. Report Ordering Provider: , FINAL REPORT Dictated: ??06/13/2024 8:21 am ? Abel Valadez MD Signed (Electronic Signature): ??06/13/2024 8:21 am Signed by: ??Abel Valadez MD Transcribed by: ??DP ? Technologist: ??AP Assessment: BI-RADS Category ??2-Benign finding Recommendation: ??Normal interval follow-up Procedure Note Radiology, Radiologist, - 06/13/2024 Exam Date/Time: 06/10/2024 11:41 EDT Reason for Exam: Z12.31 Report IMPRESSION: BIRADS 2 BENIGN FINDINGS, NORMAL INTERVAL FOLLOW-UP Follow-up: 12 MONTH RECALL Density: Category C - Heterogeneously dense. Vascular calcifications: Absent. EXAM: MA Mamm Screen w/CAD if perf and 3D Dann DATE: 06/10/2024 11:25 AM CLINICAL HISTORY: Z12.31. COMPARISONS: 04/13/2020 and 02/10/2018. TECHNIQUE: Routine full-field digital mammograms and 3D breasttomosynthesis were obtained of both breasts. FINDINGS: There are no developing densities, suspicious microcalcifications, orareas of architectural distortion identified on the current study. No significant changes are identified from the prior studies, givendifferences in technique and positioning. Stable asymmetric densities and a fewscattered microcalcifications. Dense Breast: Yes. CAD analysis was performed and used in the interpretation. Board Certified Radiologists. Accredited by the ACR and FDA. MAMMOGRAPHY IS VERY IMPORTANT TO YOUR HEALTH. THE CURRENT [employer] OF RADIOLOGY AND NATIONAL [place] [facility] [facility] NETWORK GUIDELINES RECOMMENDS ANNUAL MAMMOGRAPHY BEGINNING AT AGE 40. THIS FACILITY UTILIZES A REMINDER SYSTEM TO ENSURE ALL PATIENTS RECEIVEREMINDER NOTIFICATIONS AT THE APPROPRIATE TIME BASED ON THE RECOMMENDATIONS OF THISEXAM. Report Ordering Provider: , FINAL REPORT Dictated: 06/13/2024 8:21 am Abel Valadez MD Signed (Electronic Signature): 06/13/2024 8:21 am Signed by: Abel Valadez MD Transcribed by: VIKASH Technologist: AP Assessment: BI-RADS Category 2-Benign finding Recommendation: Normal interval follow-up Authorizing ProviderResult TypeResult StatusStephancindy Dee NPCLINISYNC IMAGINGFinal Result * THINPREP TIS PAP AND HPV MRNA E6/E7 WITH REFLEX TO HPV 16,18/45 (03/26/2024 12:00 AM EDT)ComponentValueRef RangeTest MethodAnalysis TimePerformed At Pathologist SignatureCLINICAL INFORMATIONQUESTComment:None givenLMPQUEST Comment:None givenPREV. PAPQUESTComment:None givenPREV. BXQUESTComment:None givenSOURCEQUESTComment:None givenSTATEMENT OF ADEQUACYQUESTComment: Satisfactory for evaluation. Endocervical/transformation zone component present. INTERPRETATION/RESULTQUESTComment: Cytology Results: Negative for intraepithelial lesion or malignancy. INFECTIONQUESTComment: Fungal organisms morphologically consistent with Crista spp. COMMENTQUESTComment: This Pap test has been evaluated with computer assisted technology. CYTOTECHNOLOGISTQUESTComment: SPS, ??CT(ASCP) CT Screening Location: ??[facility], [address] [place] [address] ??[phone] (ALWAYS MESSAGE)QUESTComment: EXPLANATORY NOTE: The Pap is a screening test for cervical cancer. It is not a diagnostic test and is subject to false negative and false positive results. It is most reliable when a satisfactory sample, regularly obtained, is submitted with relevant clinical findings and history, and when the Pap result is evaluated along with historic and current clinical information. HPV MRNA E6/E7Not DetectedNot DetectedQUESTComment: Methodology: Manufacturing Project Engineer-Mediated Amplification This assay detects E6/E7 viral messenger RNA (mRNA) from 14 high-risk HPV types (16,18,31,33,35,39,45,51,52,56,58,59,66,68). Cervical sources are required for HPV testing. If a vaginal source from a patient who has had a total hysterectomy with removal of cervix was submitted, please contact the testing laboratory for alternative testing options. For additional information, please refer to http://education.[employer]/faq/UYN409p5 (This link if provided for information/ educational purposes only.) Specimen (Source)Anatomical Location / LateralityCollection Method / Volume Collection TimeReceived TimeSwabCervical swab / Fpybaar41/09/2023 3:18 AM EDT Narrative Resulting Agency Comment Performing Organization Information ?Site ID: [id number] ?Name: [facility] ?Address: [address] [place] [phone] ?Director: Isac Mead MD Authorizing ProviderResult TypeResult StatusStepamanda Dee [facility]ALINA CYTOLOGY ORDERABLESFinal ResultPerforming OrganizationAddressCity/State/ZIP CodePhone Number [facility] * Cologuard?? colon cancer screening (06/04/2023 9:20 AM EDT)ComponentValueRef RangeTest MethodAnalysis TimePerformed AtPathologist SignatureNONINV COLON CA DNA+OCC BLD SCRN STL-CXYJzosjwwoDfnoruch41/16/2023 5:37 PM EDTEXAlphaBeta Labs (CLIA #:[id number])Comment: NEGATIVE TEST RESULT. A negative Cologuard result indicates a low likelihood that a colorectal cancer (CRC) or advanced adenoma (adenomatous polyps with more advanced pre-malignant features) ??is present. The chance that a person with a negative Cologuard test has a colorectal cancer is less than 1in 1500 (negative predictive value >99.9%) or has an advanced adenoma is less than 5.3% (negative predictive value 94.7%). These data are based on a prospective cross-sectional study of 10,000individuals at average risk for colorectal cancer who were screened with both Cologuard and colonoscopy. (Brianna Cano al, N Engl J Med 2014;370(14):9834-5394) The normal value (reference range) for this assay is negative. COLOGUARD RE-SCREENING RECOMMENDATION: Periodic colorectal cancer screening is an important part ofpreventive healthcare for asymptomatic individuals at average risk for colorectal cancer. ??Following a negative Cologuard result, the [employer] and U.S. Multi-Society Task Force screening guidelines recommend a Cologuard re-screening interval of 3 years. References: [employer] Guideline for Colorectal Cancer Screening: https://www.cancer.or g/cancer/zlksh-qxqlbe-lotwbc/tvjoisiyk-nqbakwpwx-qbbfboe/acs-recommendations.htm jaswant.; Carlos DK, Elvira ACKERMAN, Christ VictoriaK, Colorectal Cancer Screening: Recommendations for Physicians and Patients from the U.S. Multi-Society Task Force on Colorectal Cancer Screening , Am J Gastroenterology 2017; 112:9752-9461. TEST DESCRIPTION: Composite algorithmic analysis of stool DNA-biomarkers with hemoglobin immunoassay. ?? Quantitative values of individual biomarkers are not reportable and are not associated with individual biomarker result reference ranges. Cologuard is intended for colorectal cancer screening ofadults of either sex, 45 years or older, who are at average-risk for colorectal cancer (CRC). Cologuard has been approved for use by the [place] FDA. The performance of Cologuard was established in a cross sectional study of average-risk adults aged 50-84. Cologuard performance in patients ages 45 to 49 years was estimated by sub-group analysis of near-age groups. Colonoscopies performed for a positive result may find as the most clinically significant lesion: colorectal cancer [4.0%], advanced adenoma (including sessile serrated polyps greater than or equal to 1cm diameter) [20%] or non- advanced adenoma [31%]; or no colorectal neoplasia [45%]. These estimates are derived from a prospective cross-sectional screening study of 10,000 individuals at average risk for colorectal cancer who were screened with both Cologuard and colonoscopy. (Brianna Cano al, N Engl J Med 2014;370(14):8589-4266.) Cologuard may produce a false negative or false positive result (no colorectal cancer or precancerous polyp present at colonoscopy follow up). A negative Cologuard test result does not guarantee the absence of CRC or advanced adenoma (pre-cancer). The current Cologuard screening interval is every 3 years. ([place] [employer] and [place] Multi-Society Task Force). Cologuard performance data in a 10,000 patient pivotal study using colonoscopy as the reference method can be accessed at the following location: [email or web address]/results. Additional description of the Cologuard test process, warnings and precautions can be found at [email or web address]. Specimen (Source)Anatomical Location / LateralityCollection Method / Volume Collection TimeReceived TimeStool specimen (specimen)06/04/2023 9:20 AM EDT 06/05/2023 5:08 PM EDT Narrative Authorizing ProviderResult TypeResult StatusStepamanda Dee [facility] ORDERABLESFinal ResultPerforming OrganizationAddressCity/State/ZIP CodePhone Number .[employer] (CLIA #:[id number]) [address] [place] [address], [place] [phone] [employer] (CLIA #:[id number]) [address] [place] [phone] from Last 3 Months or Most Recently Relevant to Health Maintenance Insurance Care Teams Team MemberRelationshipSpecialtyStart DateEnd Date Evelio Dougherty DO [address] [place] [address] PCP - GeneralInternal Medicine03/14/23
--- NOTE | 2025-07-23 12:23 | XR_ITS ---
[facility] [place] [id number] Patient Name: SHAD TELLES MRN: [id number] date: 1960 Sex: F Assigned Patient Location: LAB Current Patient Location: LAB Accession/Order Number: [id number] Exam Date: 07/23/2025 12:29 Report Date: 07/23/2025 12:56 At the request of: AIDEE CROSS DO Procedure: XR ribs LT min 3V w CXR1V PA CHEST WITH HIGH VIEWS LEFT RIBS: CLINICAL HISTORY: chest pain, contussion of chest wall COMPARISON: Chest 10/31/2021 FINDINGS: Heart normal size. Lungs are clear. No free air. Additional views of the left ribs demonstrate the bones are grossly demineralized limiting evaluation. No displaced rib fractures noted. XR/XR ribs LT min 3V w CXR1V IMPRESSION: No acute findings. Impression dictated by: Cory Winston Jr., D.O. 07/23/2025 12:56 PM Dictation Location: [place] [address] Electronically authenticated by: [id number] Y Date: 07/23/2025 12:56
[2025-07-23 12:31] LABS: Hematocrit 39.7 % (36.0-48.0); Hemoglobin 12.8 g/dL (12.0-16.0); Immature Granulocytes Abs Auto 0.04 10^3/uL (0.00-0.03); Immature Granulocytes Pct Auto 0.4 % (0.0-0.5); Lymphocytes Absolute Auto 3.8 10^3/uL (1.2-3.8); Mean Corpuscular HGB Conc 32.2 g/dL (29.9-35.2); Mean Corpuscular Hemoglobin 30.7 pg (26.7-34.0); Mean Corpuscular Volume 95.2 fL (81.0-99.0); Platelet Count 340 10^3/uL (150-450); Red Blood Count 4.17 10^6/uL (4.20-5.40); White Blood Count 9.6 10^3/uL (4.0-11.0)
[2025-07-23 12:55] LABS: Alanine Aminotransferase 36 U/L (14-59); Albumin Globulin Ratio 0.8; Albumin Level 3.3 g/dL (3.4-5.0); Alkaline Phosphatase 111 U/L (46-116); Anion Gap 10.6; Aspartate Amino Transferase 17 U/L (15-37); Blood Urea Nitrogen 19.0 mg/dL (7.0-18.0); Calcium 8.3 mg/dL (8.5-10.1); Carbon Dioxide 29.6 mmol/L (21.0-32.0); Chloride 104 mmol/L (98-107); Cholesterol 253 mg/dL (<=200); Estimated GFR (African America >60 (>=60 mL/min/1.73m^2); Estimated GFR (Non-African Ame >60 (>=60 mL/min/1.73m^2); Globulin 3.9 g/dL; Glucose 117 mg/dL (74-106); HDL Cholesterol 65 mg/dL (40-60); Potassium 4.2 mmol/L (3.5-5.1); Sodium 140 mmol/L (136-145); Thyroid Stimulating Hormone 0.031 uIU/mL (0.358-3.740); Total Protein 7.2 g/dL (6.4-8.2); Triglycerides 103 mg/dL (<=150); VLDL CHOLESTEROL 20.6 mg/dL
== END 2025-07-23 12:10 | disposition home or self-care (01) ==
LOC: LAB 12:11
PROVIDERS: PCP Internal Medicine; Visit Provider Internal Medicine
DX: Z00.00 Encounter for general adult medical examination without abnormal findings (principal); E10.65 Type 1 diabetes mellitus with hyperglycemia; E89.0 Postprocedural hypothyroidism; R07.9 Chest pain, unspecified; S20.219A Contusion of unspecified front wall of thorax, initial encounter
CPT/HCPCS: 36415; 71101; 80053; 80061; 82043; 82570; 84443; 85025